=== PATIENT | female | born 1945 | race Caucasian/White ===

== ENCOUNTER 2023-07-30 22:30 | Inpatient (IN) | payer MEDICARE, SELFPAY ==
--- NOTE | 2023-07-30 22:30 | NURSING ---
Addendum entered by Cesar Uribe 07/31/23 02:34: patient declines flu and pneumonia vaccine, states I am up to date on all of my vaccines, I don't need any Original Note: patient arrived to unit via w/c via car with family transport from [place], patient states I took all of my night medications except the eliquis because I didn't have that one. Reviewed med list, patient confirms only need HS dose of eliquis. Patient A&Ox4, person/place/time/situation. Patient also states I took an oxy not long ago too before I got here. surgical dressings x3 in place to LLE, proximal dressing observed with moderate dark red drainage. No c/o pain at this time. Oriented to room and surroundings. Family at bedside. Call light in reach.
[2023-07-30 23:08] VITALS: BP 134/74; PULSE 86; RESP 16; TEMP 36.6; O2SAT 97
[2023-07-30 23:25] VITALS: BMI 31.4
--- NOTE | 2023-07-30 23:35 | NURSING ---
Code status discussed w/ pt. Pt voices her code status is DNR-CCA and that she would like that to remain. DNR-CCA paper signed.
--- NOTE | 2023-07-30 23:36 | NURSING ---
notified of patient admit by phone. Notified of estradiol and progesterone order not able to be ordered per admission nurse/unavailable in pharmacy, Per Dr. Carmen alternative may be able to be ordered. No new orders received at this time.
[2023-07-30] MEDS: APIXABAN 2.5 MG TABLET (WCH) PO (23:52)
[2023-07-31] MEDS: oxyCODONE 5 MG Tablet PO ×4 (02:44→22:46)
[2023-07-31] MEDS: metFORMIN (XR) 500 MG Tablet PO ×3 (06:35→21:25)
[2023-07-31 06:55] LABS: Bedside Glucose 134 mg/dL (74-106)
[2023-07-31 08:51] LABS: Anion Gap 4 (5-15); BUN 17 mg/dL (7-18); BUN/Creat Ratio 24.1 RATIO (10-20); Calcium,Total 8.6 mg/dL (8.5-10.1); Chloride 107 mmol/L (98-107); EST Glomerular Filtration Rate 86 mL/min (>60); Est Glom Filt Rate - Afr Amer 104 mL/min (>60); Glucose 149 mg/dL (74-106); Potassium 3.7 mmol/L (3.5-5.1); Sodium Level 138 mmol/L (136-145)
--- NOTE | 2023-07-31 09:03 | HP.PCM_ITS ---
HPI - General General Date of Admission: 07/30/23 Date of Service: 08/02/23 Chief Complaint: Here for rehabilitation. HPI Narrative ROXANA BREWER, is a 77 Female who presents with followin07/26/2023 Admit to [facility] ([place], [place]). Fall, landing on back, left leg, stepped backward, twisted at awkward angle. Morphine given per EMS. No head injury, no LOC. X-ray showed left hip fracture. Consult Orthopedics, prepare for surgery. 07/27/2023 Orthopedics performed trochanteric fixation nail of left hip. 07/27/2023 Severe pain overnight. PT/OT. [place] for urinary retention. Restart HTN medications. 07/28/2023 Eliquis for DVT prophylaxis thru 08/31/2023. 07/29/2023 Ready for discharge, but transportation complicated. 07/30/2023 Admit to TCU with debility, here for rehabilitation, strengthening, prior to discharge home with . [facility] Medical History (Updated 07/31/23 @ 09:[address] Delroy Carmen MD) Closed left hip fracture Debility Diabetes mellitus Diabetic polyneuropathy Fall Hyperlipidemia Hypertension Menopausal syndrome Urinary retention Home Medications amlodipine 5 mg tablet 5 mg PO DAILY blood pressure 07/31/14 [History Last Taken 07/30/23] losartan 50 mg tablet 50 mg PO DAILY blood pressure 07/31/14 [History Last Taken 07/30/23] metoprolol succinate 50 mg tablet,extended release 24 hr 50 mg PO DAILY blood pressure 07/31/14 [History Last Taken 07/30/23] atorvastatin 10 mg tablet mg cholesterol 07/30/23 [History Last Taken 07/30/23] estradiol 0.025 mg/24 hr weekly transdermal patch estrogen 07/30/23 [History Last Taken 07/28/23] gabapentin 100 mg capsule 200 mg nerve pain 07/30/23 [History Last Taken Unknown] metformin 500 mg tablet,extended release 24 hr mg PO diabetes 07/30/23 [History Last Taken 07/30/23] progesterone micronized 100 mg capsule mg progesterone 07/30/23 [History Last Taken 07/30/23] topiramate 100 mg tablet mg nerve pain 07/30/23 [History Last Taken 07/30/23] Allergy/AdvReac Type Severity Reaction Status Date / Time lisinopril AdvReac Upset Verified 07/31/14 11:48 Stomach Sulfa (Sulfonamide AdvReac Other Verified 07/31/14 11:48 Antibiotics) Family History (Updated 07/31/23 @ 09:[address] Delroy Carmen MD) Father Lung cancer Mother Hypertension Aortic aneurysm Sister Parkinson disease Surgical History (Updated 07/31/23 @ 09:[address] Delroy Carmen MD) History of nasal septoplasty History of tonsillectomy History of tubal ligation Social History (Updated 07/31/23 @ 09:[address] Delroy Carmen MD) household members: spouse Smoking Status: Never smoker alcohol intake: never substance use type: does not use ROS Constitutional Constitutional: Denies chills, fever(s) or weight gain ENT HEENT: Denies headache(s), nasal congestion or nasal discharge Cardiovascular Cardiovascular: Denies chest pain or palpitations Respiratory/Chest Respiratory/Chest: Denies cough, excessive phlegm production or shortness of breath with exertion Gastrointestinal Gastrointestinal: Denies abdominal pain, nausea or vomiting Genitourinary Genitourinary: Denies dysuria Musculoskeletal Musculoskeletal: Denies joint pain or joint swelling Integumentary Integumentary: Denies rash or wounds Neurologic Neurologic: Denies focal weakness, numbness or tingling Psychiatric Psychiatric: Denies anxiety, auditory hallucinations, depression, homicidal ideation or suicidal ideation Vital Signs Vital Signs Vital Signs: 07/30/23 23:08 07/30/23 23:08 07/30/23 23:08 Temperature 97.8 F 97.8 F Temperature Source Oral Oral Pulse Rate 86 86 86 Pulse Rhythm Regular Pulse Strength Normal (2+) Respiratory Rate 16 16 16 Respiratory Effort Normal Non-Labored Respiratory Depth Normal Respiratory Pattern Normal Blood Pressure 134/74 H 134/74 H Blood Pressure Mean 94 94 Blood Pressure Source Monitor Blood Pressure Position Semi-Fowlers Blood Pressure Location Left Arm Pulse Ox 97 97 97 Oxygen Delivery Method Room Air Room Air Room Air Physical Exam Const alert General Appearance: cooperative HEENT normocephalic Eyes PERRL and EOMs intact bilaterally Neck supple, no JVD and no carotid bruits Resp normal respiratory effort, normal air movement and clear to auscultation bilaterally Cardio regular rate and regular rhythm GI normal to inspection, nondistended, normoactive bowel sounds, non-tender and non-distended Extremity normal capillary refill General Extremity: Negative for edema Skin no rashes or lesions noted General Skin Exam: no breakdown Psych affect normal Appearance: appropriate Results Lab / Micro Data 07/31/23 08:13 Labs: Laboratory Results - last 24 hr 07/31/23 06:35: POC Glucose 134 H 07/31/23 08:13: Sodium 138, Potassium 3.7, Chloride 107, Carbon Dioxide 27.0, Anion Gap 4 L, BUN 17, Creatinine 0.70, Est GFR (MDRD) Af Amer 104, Est GFR (MDRD) Non-Af 86, BUN/Creatinine Ratio 24.1 H, Glucose 149 H, Calcium 8.6 Assessment & Plan Assessment/Plan (1) Debility: (2) Fall: (3) Closed left hip fracture: (4) Urinary retention: (5) Diabetes mellitus: (6) Hypertension: (7) Hyperlipidemia: (8) Diabetic polyneuropathy: (9) Menopausal syndrome: PLAN: Plan 77 year old female with below past medical history hospitalized for left hip fracture, underwent left hip trochanteric nail fixation 07/27/2023, postoperative course complicated by urinary retention, admitted to TCU with debility, here for rehabilitation, strengthening, prior to discharge home with . * Debility - PT/OT. * Pain - Tylenol 1000mg q6 prn pain (1-5), Oxycodone 5mg q4 prn pain (6-10). * Bowel - senna/colace 2 tablets bid, Magnesium citrate 300ml daily prn. * Adult immunization - Administer pneumonia vaccine, covid vaccine, flu vaccine as appropriate. * DVT prophylaxis - Eliquis 2.5mg bid thru 08/20/2023. * Hypertension - Metoprolol succinate 50mg daily, Losartan 50mg daily, Amlodi pine 5mg daily. * Hyperlipidemia - Atorvastatin 10mg qhs. * Menopausal syndrome - Prempro 0.625-2.5mg daily. * Diabetic polyneuropathy - Gabapentin 200mg qhs. * Diabetes Mellitus II - Metformin XR 500mg tid. * Essential tremor - Topiramate 100mg daily.
[2023-07-31 09:40] VITALS: BP 136/69; PULSE 89
[2023-07-31] MEDS: Topiramate 100 MG Tablet PO (09:40)
[2023-07-31] MEDS: amLODIPine 5 MG Tablet PO (09:40)
[2023-07-31] MEDS: Losartan Potassium 50 MG Tablet PO (09:40)
[2023-07-31] MEDS: Metoprolol(XL)Succ 50 MG Tablet PO (09:40)
[2023-07-31] MEDS: APIXABAN 2.5 MG TABLET (WCH) PO ×2 (09:40→21:25)
[2023-07-31] MEDS: Tuberculin,Purif.prot.deriv. 50 TU/ML Vial 0.1 ML ID (10:37)
[2023-07-31 10:52] VITALS: O2SAT 97
[2023-07-31 11:29] LABS: Bedside Glucose 126 mg/dL (74-106)
[2023-07-31] MEDS: Senna/Docusate Sodium 1 Tablet 2 TABLET PO ×2 (11:39→21:24)
[2023-07-31] MEDS: Estrogens,Conj. 0.625 MG Tablet PO (11:42)
[2023-07-31 15:42] VITALS: BP 118/56; PULSE 87; RESP 14; TEMP 36.5; O2SAT 99
[2023-07-31 16:34] LABS: Bedside Glucose 198 mg/dL (74-106)
[2023-07-31] MEDS: Gabapentin 100 MG Capsule 200 MG PO (21:23)
[2023-07-31] MEDS: Atorvastatin Calcium 10 MG Tablet PO (21:25)
[2023-07-31 22:10] LABS: Bedside Glucose 126 mg/dL (74-106)
[2023-07-31] MEDS: Acetaminophen 500 MG Tablet 1000 MG PO (22:46)
[2023-08-01] MEDS: oxyCODONE 5 MG Tablet PO ×4 (04:06→23:40)
--- NOTE | 2023-08-01 04:23 | NURSING ---
Metformin XR 500mg is scheduled 1 tablet TID- refer to JUL. Pt notes home regimen is 2 tablets (1000mg) w/ breakfast and 1 tablet at supper at home. Does not wish to take dose scheduled for 0600 this am. Checks blood sugar once per month and PRN sxs hypo/hyperglycemia. Will place a communication to pharmacy and report to oncoming nurse.
[2023-08-01 06:32] LABS: Bedside Glucose 142 mg/dL (74-106)
[2023-08-01] MEDS: Losartan Potassium 50 MG Tablet PO (09:06)
[2023-08-01 09:07] VITALS: BP 148/77; PULSE 91
[2023-08-01] MEDS: Estrogens,Conj. 0.625 MG Tablet PO (09:07)
[2023-08-01] MEDS: metFORMIN (XR) 500 MG Tablet 1000 MG PO (09:07)
[2023-08-01] MEDS: Metoprolol(XL)Succ 50 MG Tablet PO (09:07)
[2023-08-01] MEDS: amLODIPine 5 MG Tablet PO (09:07)
[2023-08-01] MEDS: Topiramate 100 MG Tablet PO (09:07)
[2023-08-01] MEDS: APIXABAN 2.5 MG TABLET (WCH) PO ×2 (09:08→21:59)
[2023-08-01] MEDS: Senna/Docusate Sodium 1 Tablet 2 TABLET PO ×2 (09:09→21:59)
[2023-08-01 15:34] VITALS: BP 105/57; PULSE 85; RESP 16; TEMP 36.4; O2SAT 98
[2023-08-01] MEDS: metFORMIN (XR) 500 MG Tablet PO (16:42)
[2023-08-01 21:25] LABS: Bedside Glucose 155 mg/dL (74-106)
[2023-08-01] MEDS: Gabapentin 100 MG Capsule 200 MG PO (21:58)
[2023-08-01] MEDS: Acetaminophen 500 MG Tablet 1000 MG PO (21:59)
[2023-08-01] MEDS: Atorvastatin Calcium 10 MG Tablet PO (22:00)
[2023-08-02] MEDS: oxyCODONE 5 MG Tablet PO ×4 (03:54→21:29)
[2023-08-02 06:11] LABS: Bedside Glucose 132 mg/dL (74-106)
[2023-08-02 09:29] VITALS: BP 137/71; PULSE 91; RESP 16; TEMP 36.4; O2SAT 96
[2023-08-02] MEDS: Losartan Potassium 50 MG Tablet PO (09:31)
[2023-08-02] MEDS: metFORMIN (XR) 500 MG Tablet 1000 MG PO (09:31)
[2023-08-02] MEDS: APIXABAN 2.5 MG TABLET (WCH) PO ×2 (09:31→21:22)
[2023-08-02 09:32] VITALS: PULSE 91
[2023-08-02] MEDS: Topiramate 100 MG Tablet PO (09:32)
[2023-08-02] MEDS: Senna/Docusate Sodium 1 Tablet 2 TABLET PO (09:32)
[2023-08-02] MEDS: Metoprolol(XL)Succ 50 MG Tablet PO (09:32)
[2023-08-02] MEDS: Estrogens,Conj. 0.625 MG Tablet PO (09:32)
[2023-08-02] MEDS: amLODIPine 5 MG Tablet PO (09:32)
[2023-08-02] MEDS: Hydrocortisone 2.5% Crm 1 APPLIC TOPICAL ×2 (09:41→19:54)
--- NOTE | 2023-08-02 09:50 | NURSING ---
hydrocortisone cream applied to rash on back, reddened and itchy. pt states she has a new nightgown on that was never washed. Ice pack refilled and placed to LT groin area per pt request. pt resting in recliner chair, legs elevated, at side
--- NOTE | 2023-08-02 10:17 | NURSING ---
[place] Hoist Operator Note; Activity Asset: Sarita Stern is independent in her choice of daily activities. She has her bible, books, magazines and word search puzzles with her. She will read and watch tv and her brick extruder operator will be visiting w/her along with her . Her stated he will bring items from home if she needs anything. Staff will remind her of weekly activities and respect her right to say no.
--- NOTE | 2023-08-02 10:59 | PCM.PN.DRR ---
Documented by User: Samuel Vazquez 08/02/23 11:18 TCU RX Drug Regimen Review Subjective/Objective Subjective/Objective: Subjective: TCU drug regimen review. 77 year old female with below past medical history hospitalized for left hip fracture, underwent left hip trochanteric nail fixation 07/27/2023, postoperative course complicated by urinary retention, admitted to TCU with debility, here for rehabilitation, strengthening, prior to discharge home with . Objective: Allergies lisinopril Adverse Reaction (Verified 07/31/14 11:48) Upset Stomach Sulfa (Sulfonamide Antibiotics) Adverse Reaction (Verified 07/31/14 11:48) Other Current Medications Generic Name Dose Route Start Last Admin Trade Name Freq PRN Reason Stop Dose Admin Acetaminophen 1,000 mg 07/31/23 09:22 08/01/23 21:59 Acetaminophen 500 Mg Tablet PO 1,000 mg Q6H PRN PRN Administration Pain Score 1-5 Amlodipine Besylate 5 mg 07/31/23 10:00 08/02/23 09:32 Amlodipine 5 Mg Tablet PO 5 mg DAILY RUBEN Administration Protocol Apixaban 2.5 mg 07/30/23 23:29 08/02/23 09:31 Apixaban 2.5 Mg Tablet ([facility]) PO 08/20/23 23:30 2.5 mg BID RUBEN Administration Atorvastatin Calcium 10 mg 07/31/23 22:00 08/01/23 22:00 Atorvastatin Calcium 10 Mg Tablet PO 10 mg HS RUBEN Administration Estrogens Conjugated 0.625 mg 07/31/23 10:00 08/02/23 09:32 Estrogens,Conj. 0.625 Mg Tablet PO 0.625 mg DAILY RUBEN Administration Gabapentin 200 mg 07/31/23 22:00 08/01/23 21:58 Gabapentin 100 Mg Capsule PO 200 mg HS RUBEN Administration Hydrocortisone 1 applic 08/02/23 07:23 08/02/23 09:41 Hydrocortisone 2.5% Crm TOPICAL 1 applic BID PRN PRN Administration RASH/TOPICAL IRRITATION Protocol Losartan Potassium 50 mg 07/31/23 10:00 08/02/23 09:31 Losartan Potassium 50 Mg Tablet PO 50 mg DAILY RUBEN Administration Protocol Magnesium Citrate 300 ml 07/31/23 09:23 Magnesium Citrate 300 Ml PO DAILY PRN CONSTIPATION Medroxyprogesterone Acetate 2.5 mg 07/31/23 10:00 08/02/23 09:31 Medroxyprogesterone 2.5 Mg Tablet PO 2.5 mg DAILY RUBEN Administration Metformin HCl 500 mg 08/01/23 17:00 08/01/23 16:42 Metformin (Xr) 500 Mg Tablet PO 500 mg SUPPER RUBEN Administration Metformin HCl 1,000 mg 08/01/23 08:00 08/02/23 09:31 Metformin (Xr) 500 Mg Tablet PO 1,000 mg BREAKFAST RUBEN Administration Metoprolol Succinate 50 mg 07/31/23 10:00 08/02/23 09:32 Metoprolol(Xl)Succ 50 Mg Tablet PO 50 mg DAILY RUBEN Administration Protocol Oxycodone HCl 5 mg 07/31/23 09:24 08/02/23 03:54 Oxycodone 5 Mg Tablet PO 08/03/23 09:24 5 mg Q4H PRN PRN Administration Pain Score 6-10 Senna/Docusate Sodium 2 tablet 07/31/23 10:00 08/02/23 09:32 Senna/Docusate Sodium 1 Tablet PO 2 tablet BID RUBEN Administration Topiramate 100 mg 07/31/23 10:00 08/02/23 09:32 Topiramate 100 Mg Tablet PO 100 mg DAILY RUBEN Administration Tuberculin PPD 0.1 ml 08/07/23 10:00 Tuberculin,Purif.Prot.Deriv. 50 Tu/Ml Vial ID 08/07/23 10:01 X1 ONE Problem List (Updated 07/31/23 @ 09:[address] Delroy Carmen MD) Menopausal syndrome (Acute) Diabetic polyneuropathy (Acute) Hyperlipidemia (Acute) Hypertension (Chronic) Diabetes mellitus (Acute) Urinary retention (Acute) Closed left hip fracture (Acute) Fall (Acute) Debility (Acute) Vital Signs Temp Pulse Resp BP Pulse Ox O2 Del Method 97.6 F L 91 16 137/71 H 96 Room Air 08/02/23 09:29 08/02/23 09:32 08/02/23 09:29 08/02/23 09:29 08/02/23 09:29 08/02/23 09:29 Oxygen Delivery Method Room Air Weight: 83.642 kg Body Mass Index (BMI) 31.4 Sodium 138 mmol/L (136-145) 07/31/23 08:13 Potassium 3.7 mmol/L (3.5-5.1) 07/31/23 08:13 Chloride 107 mmol/L (98-107) 07/31/23 08:13 Carbon Dioxide 27.0 mmol/L (21.0-32.0) 07/31/23 08:13 Anion Gap 4 (5-15) L 07/31/23 08:13 BUN 17 mg/dL (7-18) 07/31/23 08:13 Creatinine 0.70 mg/dL (0.55-1.02) 07/31/23 08:13 Est GFR (MDRD) Af Amer 104 mL/min (>60) 07/31/23 08:13 Est GFR (MDRD) Non-Af 86 mL/min (>60) 07/31/23 08:13 BUN/Creatinine Ratio 24.1 RATIO (10-20) H 07/31/23 08:13 Glucose 149 mg/dL (74-106) H 07/31/23 08:13 Assessment/Plan: 1. Pain: acetaminophen 1000 mg PO Q6H PRN pain (1-5), oxycodone 5 mg PO Q4H PRN pain (6-10). The patient has used 2 PRN doses of acetaminophen and 8 doses of PRN oxycodone so far this admission. Please continue to monitor pain scores, LFTs (no recent LFTs documented), for sedation, respiratory depression, drowsiness/dizziness, constipation and syncope/ataxia/falls. As the patient continues to require frequent doses of oxycodone please consider change acetaminophen to 1000 mg PO Q8H scheduled to try to stay ahead of pain levels. 2. Bowel: senna/docusate 2 tablets PO BID, magnesium citrate 300 mL PO daily PRN constipation. The patient has not required any PRN doses of magnesium citrate so far this admission. Please continue to monitor for PRN medication usage, bowel movements, diarrhea and constipation. 3. DVT prophylaxis: apixaban 2.5 mg PO BID through 08/20/23. Please continue to monitor for s/s of DVT such as pain/erythema/edema in the lower extremity, for s/s of bleeding/excessive bruising, hemoglobin levels (Hgb = 16.1 g/dL on 07/31/14), and platelet counts (Plt = 223 K/mm3 on 07/31/14). Please consider ordering updated hemoglobin and platelet counts to assess levels while on anticoagulation. 4. Hypertension: metoprolol succinate 50 mg PO daily, losartan 50 mg PO daily, amlodipine 5 mg PO daily. Please continue to monitor blood pressures (recent range = 105-148/56-74 mmHg), heart rates (recent range = 78-91 beats/min), renal function (serum creatinine = 0.70 mg/dL with creatinine clearance ~ 104 mL/min on 07/31/23), sodium levels (Na = 138 mmol/L on 07/31/23), potassium levels (K = 3.7 mmol/L on 07/31/23), and for lower extremity edema. 5. Hyperlipidemia: atorvastatin 10 mg PO QHS. Please continue to monitor lipid levels (no recent lipid levels documented), and for myalgias. Please consider ordering lipid levels to assess status if clinically indicated. 6. Diabetes Mellitus II: metformin 1000 mg PO daily with breakfast, 500 mg PO daily with supper. Please continue to monitor blood glucose levels (recent range = 126-198 mg/dL), hemoglobin A1C levels (no recent hemoglobin A1C level documented), for GI distress with metformin administration, and vitamin B12 levels (no recent vitamin B12 levels documented). Please consider ordering hemoglobin A1C and vitamin B12 levels if clinically indicated. 7. Diabetic polyneuropathy: gabapentin 200 mg PO QHS. Please continue to monitor for neuropathy symptoms, for drowsiness/dizziness, renal function (serum creatinine = 0.70 mg/dL with creatinine clearance ~ 104 mL/min on 07/31/23), and for lower extremity edema. 8. Menopausal syndrome: estrogen 0.625 mg PO daily, medroxyprogesterone 2.5 mg PO daily. Please continue to monitor for menopausal symptoms, for headaches, abdominal pain, dysmenorrhea, for hypertension, and migraines. 9. Essential Tremor: topiramate 100 mg PO daily. Please continue to monitor tremor symptoms, for kidney stones, for SI, for s/s of metabolic acidosis, and for dizziness. 10. Rash/topical irritation: hydrocortisone 2.5% 1 application topically BID PRN rash/topical irritation. The patient has used 1 application of PRN hydrocortisone so far this admission. Please continue to monitor for resolution of rash/topical irritation as well as for PRN medication usage. Assessment/Plan for indications treated with psychotropic medications: NA Medical chart and medication regimen reviewed. The following medication irregularities or issues were identified: 1. DVT prophylaxis: apixaban 2.5 mg PO BID through 08/20/23. Please consider ordering updated hemoglobin and platelet counts to assess levels while on anticoagulation. 2. Hyperlipidemia: atorvastatin 10 mg PO QHS. Please consider ordering lipid levels to assess status if clinically indicated. 3. Diabetes Mellitus II: metformin 1000 mg PO daily with breakfast, 500 mg PO daily with supper. Please consider ordering hemoglobin A1C and vitamin B12 levels if clinically indicated. Date Date of Note:: 08/02/23 Documented by User: Dr. Delroy Carmen MD 08/02/23 12:16 TCU RX Drug Regimen Review Provider Comments Provider responsibility Provider Comments to Recommendations by Pharmacy: Agree
[2023-08-02 13:55] VITALS: RESP 16; O2SAT 96
--- NOTE | 2023-08-02 15:43 | CASEMGMT ---
Transitional Care Unit Financial Services Manager Sw met with patient to complete initial assessment. Sw introduced self and explained role. Sw verified patient's contacts. Patient confirmed code status as DNRCC-A, no intubation. Amara reports that her documentation of advanced directives have been brought into hospital today to be scanned into her medical record. Patient identifies her HCPOA as friend, Nereida Nieto. Patient educated to Medicare benefits. Patient's goal is to be discharged to home with . Sw will remain involved throughout current hospitalization to assist with discharge planning. Bryan Chadwick, OPERATING ROOM TECHNICIAN, PROGRAM DIRECTOR/MORNING SHOW HOST
[2023-08-02] MEDS: metFORMIN (XR) 500 MG Tablet PO (17:42)
[2023-08-02] MEDS: Gabapentin 100 MG Capsule 200 MG PO (21:22)
[2023-08-02] MEDS: Atorvastatin Calcium 10 MG Tablet PO (21:22)
[2023-08-02 21:42] LABS: Bedside Glucose 122 mg/dL (74-106)
[2023-08-03] MEDS: oxyCODONE 5 MG Tablet PO ×2 (05:38→17:41)
--- NOTE | 2023-08-03 06:00 | NURSING ---
Patient told SERVICES ACCOUNT MANAGER during AM accucheck that this will be the last time I'm getting poked. SERVICES ACCOUNT MANAGER told this nurse patient is refusing to have any more blood sugar checks. This nurse spoke with patient regarding the importance of blood sugar checks due to her being on diabetic medications (metformin) twice a day. Patient educated on consequences of not checking blood sugars such as hypoglycemia or hyperglycemia. Patient understands and is still requesting to have accuchecks discontinued. This nurse left note for Dr. Carmen.
[2023-08-03 06:05] LABS: Bedside Glucose 127 mg/dL (74-106)
[2023-08-03 06:39] LABS: Cholesterol 106 mg/dL (200); High Density Lipoprotein 35 mg/dL; Triglycerides 105 mg/dL; Very Low Density Lipoprotein 21 mg/dL (5-40)
[2023-08-03 08:13] LABS: Hemoglobin A1c 6.1 % (3.8-5.6)
[2023-08-03 08:27] VITALS: PULSE 89
[2023-08-03] MEDS: Metoprolol(XL)Succ 50 MG Tablet PO (08:27)
[2023-08-03] MEDS: amLODIPine 5 MG Tablet PO (08:27)
[2023-08-03] MEDS: metFORMIN (XR) 500 MG Tablet 1000 MG PO (08:28)
[2023-08-03] MEDS: Topiramate 100 MG Tablet PO (08:28)
[2023-08-03] MEDS: APIXABAN 2.5 MG TABLET (WCH) PO ×2 (08:28→21:13)
[2023-08-03] MEDS: Losartan Potassium 50 MG Tablet PO (08:28)
[2023-08-03] MEDS: Estrogens,Conj. 0.625 MG Tablet PO (08:28)
[2023-08-03 09:51] LABS: Vitamin B12 350 pg/mL (211-911)
[2023-08-03 10:15] VITALS: BP 118/64; PULSE 87; RESP 18; TEMP 36.6; O2SAT 95
[2023-08-03 11:17] VITALS: BMI 30.8
[2023-08-03] MEDS: Acetaminophen 500 MG Tablet 1000 MG PO (12:58)
[2023-08-03] MEDS: metFORMIN (XR) 500 MG Tablet PO (17:26)
[2023-08-03] MEDS: Hydrocortisone 2.5% Crm 1 APPLIC TOPICAL (20:08)
[2023-08-03 20:09] VITALS: PULSE 82; RESP 16; O2SAT 98
[2023-08-03] MEDS: Gabapentin 100 MG Capsule 200 MG PO (21:12)
[2023-08-03] MEDS: Atorvastatin Calcium 10 MG Tablet PO (21:13)
[2023-08-04] MEDS: oxyCODONE 5 MG Tablet PO ×4 (00:18→21:22)
[2023-08-04] MEDS: Hydrocortisone 2.5% Crm 1 APPLIC TOPICAL ×2 (06:41→21:25)
[2023-08-04 08:36] VITALS: BP 116/59; PULSE 89
[2023-08-04] MEDS: Metoprolol(XL)Succ 50 MG Tablet PO (08:36)
[2023-08-04] MEDS: Estrogens,Conj. 0.625 MG Tablet PO (08:36)
[2023-08-04] MEDS: Topiramate 100 MG Tablet PO (08:38)
[2023-08-04] MEDS: APIXABAN 2.5 MG TABLET (WCH) PO ×2 (08:38→21:22)
[2023-08-04] MEDS: metFORMIN (XR) 500 MG Tablet 1000 MG PO (08:38)
[2023-08-04] MEDS: amLODIPine 5 MG Tablet PO (08:38)
[2023-08-04] MEDS: Losartan Potassium 50 MG Tablet PO (08:38)
[2023-08-04 09:19] VITALS: PULSE 72; RESP 16; TEMP 36.6; O2SAT 98
--- NOTE | 2023-08-04 11:49 | CASEMGMT ---
Social Work Collaboration with PRODUCE SERVICE TEAM MEMBER on presenting social work information for care plan meeting. Information included explanation of Medicare benefit and copay coverage. Inquired about concerns for DC, steps to navigate at home, if can provide assistance and if there are no DME or therapy needs at DC. Pt/ reported there are no concerns with DC; can assist; pt is gradually completing steps in therapy sessions; No DME needs; requesting [facility] at DC. This worker's business card was provided to pt/ if questions arise. SW will continue to follow for DC planning. JOSE LUIS QuinterosW
--- NOTE | 2023-08-04 15:59 | CHAPLAIN ---
Type of Pastoral Visit _x__ Initial Visit ___ Follow-up Visit ___ On-call Visit ___ General Patient Visit ___ Spiritual Assessment ___ Family Conference ___ Bereavement ___ Rapid Response ___ Code Blue ___ Other (describe below) Pastoral Care Referral From _x__ Patient ___ Family ___ Nurse ___ Physician ___ Account Receivable Associate ___ Leather Shaver ___ Other (describe below) Sacrament/Intervention _x__ Active listening ___ Anointing ___ Muslim ___ Bereavement ___ Communion _x__ Maya exploration ___ _x__ Life review _x__ Prayer ___ Reconciliation ___ Sacrament of Sick ___ Supportive presence ___ Wedding ___ Other (describe below) Pastoral Comments patient and spouse are in the room; pt reports on many good outcomes and circumstances with her recovery; pt speaks of her life and her service to the community; 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
[2023-08-04] MEDS: metFORMIN (XR) 500 MG Tablet PO (17:50)
[2023-08-04] MEDS: Atorvastatin Calcium 10 MG Tablet PO (21:22)
[2023-08-04] MEDS: Senna/Docusate Sodium 1 Tablet 2 TABLET PO (21:22)
[2023-08-04] MEDS: Gabapentin 100 MG Capsule 200 MG PO (21:23)
--- NOTE | 2023-08-04 22:29 | NURSING ---
Patient c/o that rash on back has changed from itching to painful. No significant change in look of rash from yesterday. Extra flat sheet placed on bed, hydrocortisone cream applied to back. Communication left for Dr. Carmen. Will continue to monitor.
[2023-08-05] MEDS: oxyCODONE 5 MG Tablet PO ×3 (03:41→21:54)
[2023-08-05 08:13] VITALS: BP 114/67; PULSE 90; RESP 16; TEMP 36.6; O2SAT 97
[2023-08-05 08:17] VITALS: PULSE 90
[2023-08-05] MEDS: metFORMIN (XR) 500 MG Tablet 1000 MG PO (08:17)
[2023-08-05] MEDS: Metoprolol(XL)Succ 50 MG Tablet PO (08:17)
[2023-08-05] MEDS: Estrogens,Conj. 0.625 MG Tablet PO (08:17)
[2023-08-05] MEDS: Losartan Potassium 50 MG Tablet PO (08:17)
[2023-08-05] MEDS: Topiramate 100 MG Tablet PO (08:17)
[2023-08-05] MEDS: Senna/Docusate Sodium 1 Tablet 2 TABLET PO (08:17)
[2023-08-05] MEDS: APIXABAN 2.5 MG TABLET (WCH) PO ×2 (08:17→21:57)
[2023-08-05] MEDS: amLODIPine 5 MG Tablet PO (08:18)
[2023-08-05] MEDS: Hydrocortisone 2.5% Crm 1 APPLIC TOPICAL (08:19)
--- NOTE | 2023-08-05 08:25 | NURSING ---
DR JACOBSEN ORDERED MEDROL DOSE LAMONT AND DOXYCYCLINE FOR BACK RASH.
[2023-08-05] MEDS: Doxycycline 100 MG CAPSULE PO ×2 (09:37→21:56)
[2023-08-05] MEDS: MethylPREDNISolone DosePak 4 MG BOX PO ×3 (12:08→21:57)
[2023-08-05] MEDS: metFORMIN (XR) 500 MG Tablet PO (18:22)
[2023-08-05 21:30] VITALS: RESP 16
[2023-08-05] MEDS: Gabapentin 100 MG Capsule 200 MG PO (21:55)
[2023-08-05] MEDS: Atorvastatin Calcium 10 MG Tablet PO (21:56)
[2023-08-06] MEDS: metFORMIN (XR) 500 MG Tablet 1000 MG PO (08:35)
[2023-08-06] MEDS: MethylPREDNISolone DosePak 4 MG BOX PO ×4 (08:38→21:14)
[2023-08-06] MEDS: Topiramate 100 MG Tablet PO (08:39)
[2023-08-06 08:40] VITALS: BP 129/68; PULSE 91
[2023-08-06] MEDS: Estrogens,Conj. 0.625 MG Tablet PO (08:40)
[2023-08-06] MEDS: Doxycycline 100 MG CAPSULE PO ×2 (08:40→21:06)
[2023-08-06] MEDS: Metoprolol(XL)Succ 50 MG Tablet PO (08:40)
[2023-08-06] MEDS: Losartan Potassium 50 MG Tablet PO (08:41)
[2023-08-06] MEDS: amLODIPine 5 MG Tablet PO (08:41)
[2023-08-06] MEDS: APIXABAN 2.5 MG TABLET (WCH) PO ×2 (08:41→21:06)
[2023-08-06] MEDS: oxyCODONE 5 MG Tablet PO ×3 (09:52→22:55)
--- NOTE | 2023-08-06 14:15 | MDS.RN ---
Pain interview for MDS completed.
[2023-08-06 15:37] VITALS: BP 117/55; PULSE 79; RESP 16; TEMP 37.1; O2SAT 95
[2023-08-06] MEDS: metFORMIN (XR) 500 MG Tablet PO (16:43)
--- NOTE | 2023-08-06 20:48 | CASEMGMT ---
Social Work BIMS () and PHQ-2 () completed for MDS assessment. Pt inquired about DC plans and requesting to set DC date. prefers 08/11. IDT agreeable to DC 08/11. Pt denied any DME needs and requesting OP therapy at [facility]. can transport. Plan: DC home with 08/11, [facility] PT Neha Garcia, JOSE LUIS NORTHW
[2023-08-06] MEDS: Senna/Docusate Sodium 1 Tablet 2 TABLET PO (21:06)
[2023-08-06] MEDS: Atorvastatin Calcium 10 MG Tablet PO (21:06)
[2023-08-06] MEDS: Gabapentin 100 MG Capsule 200 MG PO (21:06)
[2023-08-07] MEDS: oxyCODONE 5 MG Tablet PO ×3 (05:23→19:33)
[2023-08-07 06:45] LABS: Absolute Lymphocyte Count 3.44 X10^3/uL (0.83-4.51); Basophil# 0.03 X10^3/uL; Basophil% 0.2 % (0-1); Eosinophil# 0.01 X10^3/uL; Eosinophils% 0.1 % (0-5); Hematocrit 30.9 % (37-47); Hemoglobin 10.1 g/dL (12.0-15.0); Lymphocyte # 3.44 X10^3/ul (0.83-4.51); Lymphocyte % 28.4 % (19-41); Mean Corp Hgb Conc 32.7 g/dL (32-36); Mean Corpuscular Hgb 31.6 pg (27.0-32.0); Mean Corpuscular Volume 96.6 fL (81-99); Mean Platelet Vol. 8.4 fl (6.2-12.0); Monocyte# 0.59 X10^3/uL; Monocyte% 4.9 % (0-10); NRBC Flagged by Analyzer 0 % (0-5); Neutrophil # 7.98 X10^3/uL (2.7-7.7); Neutrophil % 65.7 % (47-70); Platelet Count 348 K/mm3 (150-450); RBC Distribution Width CV 14.3 % (11.6-14.6); RBC Distribution Width SD 47.9 fl (35.1-43.9); White Blood Count 12.1 K/mm3 (4.4-11.0)
[2023-08-07 07:29] LABS: Anion Gap 5 (5-15); BUN 21 mg/dL (7-18); BUN/Creat Ratio 26.5 RATIO (10-20); Chloride 105 mmol/L (98-107); Creatinine, Serum 0.79 mg/dL (0.55-1.02); EST Glomerular Filtration Rate 75 mL/min (>60); Est Glom Filt Rate - Afr Amer 90 mL/min (>60); Estimated Creatinine Clearance 61.93 ml/min; Glucose 151 mg/dL (74-106); Potassium 4.1 mmol/L (3.5-5.1); Sodium Level 135 mmol/L (136-145)
[2023-08-07 09:29] VITALS: PULSE 83
[2023-08-07] MEDS: Doxycycline 100 MG CAPSULE PO ×2 (09:29→22:17)
[2023-08-07] MEDS: Metoprolol(XL)Succ 50 MG Tablet PO (09:29)
[2023-08-07 09:30] VITALS: BP 122/64; PULSE 83; RESP 16; TEMP 36.6; O2SAT 95
[2023-08-07] MEDS: metFORMIN (XR) 500 MG Tablet 1000 MG PO (09:30)
[2023-08-07] MEDS: Estrogens,Conj. 0.625 MG Tablet PO (09:30)
[2023-08-07] MEDS: amLODIPine 5 MG Tablet PO (09:30)
[2023-08-07] MEDS: Losartan Potassium 50 MG Tablet PO (09:30)
[2023-08-07] MEDS: MethylPREDNISolone DosePak 4 MG BOX PO ×4 (09:31→22:15)
[2023-08-07] MEDS: APIXABAN 2.5 MG TABLET (WCH) PO ×2 (09:31→22:14)
[2023-08-07] MEDS: Topiramate 100 MG Tablet PO (09:33)
[2023-08-07] MEDS: Tuberculin,Purif.prot.deriv. 50 TU/ML Vial 0.1 ML ID (17:37)
[2023-08-07] MEDS: metFORMIN (XR) 500 MG Tablet PO (17:38)
[2023-08-07] MEDS: Atorvastatin Calcium 10 MG Tablet PO (22:14)
[2023-08-07] MEDS: Gabapentin 100 MG Capsule 200 MG PO (22:21)
[2023-08-08] MEDS: oxyCODONE 5 MG Tablet PO ×4 (01:43→22:34)
[2023-08-08 07:57] LABS: Hemoglobin 10.8 g/dL (12.0-15.0)
[2023-08-08 09:27] VITALS: PULSE 80
[2023-08-08] MEDS: Estrogens,Conj. 0.625 MG Tablet PO (09:27)
[2023-08-08] MEDS: amLODIPine 5 MG Tablet PO (09:27)
[2023-08-08] MEDS: Metoprolol(XL)Succ 50 MG Tablet PO (09:27)
[2023-08-08] MEDS: Topiramate 100 MG Tablet PO (09:27)
[2023-08-08] MEDS: APIXABAN 2.5 MG TABLET (WCH) PO ×2 (09:27→22:35)
[2023-08-08] MEDS: Senna/Docusate Sodium 1 Tablet 2 TABLET PO (09:27)
[2023-08-08] MEDS: Losartan Potassium 50 MG Tablet PO (09:28)
[2023-08-08] MEDS: Doxycycline 100 MG CAPSULE PO ×2 (09:28→22:35)
[2023-08-08] MEDS: metFORMIN (XR) 500 MG Tablet 1000 MG PO (09:28)
[2023-08-08] MEDS: MethylPREDNISolone DosePak 4 MG BOX PO ×3 (09:28→22:34)
[2023-08-08 11:00] VITALS: BP 130/61; PULSE 80; RESP 16; TEMP 36.6; O2SAT 95
[2023-08-08] MEDS: metFORMIN (XR) 500 MG Tablet PO (16:19)
[2023-08-08 22:30] VITALS: BP 142/68; PULSE 84; RESP 17; TEMP 36.3; O2SAT 94
[2023-08-08] MEDS: Gabapentin 100 MG Capsule 200 MG PO (22:34)
[2023-08-08] MEDS: Atorvastatin Calcium 10 MG Tablet PO (22:35)
[2023-08-09] MEDS: oxyCODONE 5 MG Tablet PO ×3 (05:12→19:41)
--- NOTE | 2023-08-09 08:01 | PCM.DC.SUM ---
Providers Date of Admission: 07/30/23 Primary Care Physician: Dr. Amanuel Pete MD Reason For Visit: LEFT HIP FRACTURE Diagnosis Discharge Diagnosis (1) Debility: Status: Acute Code(s): R53.81 - Other malaise (2) Fall: Status: Acute Code(s): W19.XXXA - Unspecified fall, initial encounter (3) Closed left hip fracture: Status: Acute Code(s): S72.002A - Fracture of unspecified part of neck of left femur, initial encounter for closed fracture (4) Urinary retention: Status: Acute Code(s): R33.9 - Retention of urine, unspecified (5) Diabetes mellitus: Status: Acute Code(s): E11.9 - Type 2 diabetes mellitus without complications (6) Hypertension: Status: Chronic Code(s): I10 - Essential (primary) hypertension (7) Hyperlipidemia: Status: Acute Code(s): E78.5 - Hyperlipidemia, unspecified (8) Diabetic polyneuropathy: Status: Acute Code(s): E11.42 - Type 2 diabetes mellitus with diabetic polyneuropathy (9) Menopausal syndrome: Status: Acute Code(s): N95.1 - Menopausal and female climacteric states Plan 77 year old female with below past medical history hospitalized for left hip fracture, underwent left hip trochanteric nail fixation 07/27/2023, postoperative course complicated by urinary retention, admitted to TCU with debility, here for rehabilitation, strengthening, prior to discharge home with . Debility - PT/OT. Pain - Tylenol 1000mg q6 prn pain (1-5), Oxycodone 5mg q4 prn pain (6-10). Bowel - senna/colace 2 tablets bid, Magnesium citrate 300ml daily prn. Adult immunization - Administer pneumonia vaccine, covid vaccine, flu vaccine as appropriate. DVT prophylaxis - Eliquis 2.5mg bid thru 08/20/2023. Hypertension - Metoprolol succinate 50mg daily, Losartan 50mg daily, Amlodipine 5mg daily. Hyperlipidemia - Atorvastatin 10mg qhs. Menopausal syndrome - Prempro 0.625-2.5mg daily. Diabetic polyneuropathy - Gabapentin 200mg qhs. Diabetes Mellitus II - Metformin XR 500mg tid. Essential tremor - Topiramate 100mg daily. Medications at Discharge Home Medications amlodipine 5 mg tablet 5 mg PO DAILY blood pressure 07/31/14 losartan 50 mg tablet 50 mg PO DAILY blood pressure 07/31/14 metoprolol succinate 50 mg tablet,extended release 24 hr 50 mg PO DAILY blood pressure 07/31/14 atorvastatin 10 mg tablet mg cholesterol 07/30/23 estradiol 0.025 mg/24 hr weekly transdermal patch estrogen 07/30/23 gabapentin 100 mg capsule 200 mg nerve pain 07/30/23 metformin 500 mg tablet,extended release 24 hr mg PO diabetes 07/30/23 progesterone micronized 100 mg capsule mg progesterone 07/30/23 topiramate 100 mg tablet mg nerve pain 07/30/23 acetaminophen 500 mg tablet 1,000 mg (2 x 500 mg) PO Q6H PRN PRN Pain Score 1-5 #0 tabs 08/09/23 apixaban 5 mg tablet (Eliquis) 2.5 mg (1/2 x 5 mg) PO BID 18 days #18 tabs 08/09/23 oxycodone 5 mg tablet 5 mg PO Q4H PRN PRN Pain Score 6-10 7 days #42 tabs 08/09/23 sennosides 8.6 mg-docusate sodium 50 mg tablet (Stool Softener-Stimulant Laxative) 2 tab PO BID 30 days #120 tabs 08/09/23 Hospital Course Operations - (See below.) Procedures None Summary of Care Provided Minutes Spent on Discharge: 35 Hospital Course: 77 year old female with below past medical history hospitalized for left hip fracture, underwent left hip trochanteric nail fixation 07/27/2023, postoperative course complicated by urinary retention, admitted to TCU with debility, here for rehabilitation, strengthening, prior to discharge home with . Discharge home with 08/12/2023, [facility]. Physical Exam Const alert General Appearance: cooperative HEENT normocephalic Eyes PERRL and EOMs intact bilaterally Neck supple, no JVD and no carotid bruits Resp normal respiratory effort, normal air movement and clear to auscultation bilaterally Cardio regular rate and regular rhythm GI normal to inspection, nondistended, normoactive bowel sounds, non-tender and non-distended Extremity normal capillary refill Extremity Narrative: Left buttock, left posterior thigh bruising. Left hip incision hung intact, underlying hematoma improving, no sign of infection. General Extremity: Negative for edema Skin no rashes or lesions noted General Skin Exam: no breakdown Psych affect normal Appearance: appropriate Weight / BMI Weight Weight: 81.873 kg Body Mass Index (BMI) 30.8 ABG / Lab / Microbiology Data 08/08/23 07:34 08/07/23 06:25 D/C Instructions Discharge Diet: No restrictions Discharge Activity: Return to Normal Activity, May Shower and Use Walker Weight Bearing Status: Weight bearing as tolerated Call your doctor if you observe: Fever of 101 or Higher, Inability to urinate, Inability to have a bowel movement, Shortness of breath, Dizziness, Fainting spells, Swelling in the ankles, Chest pain and Uncontrolled pain Additional Dressing/Incision Instructions: Discharge home with 08/12/2023, [facility]. Please Follow Up With: Arthur Calixto DO When: 08/13/2023. Meaningful Use Info Meaningful Use Diagnoses (Choose all that apply): None applicable Discharge Plan Admission Admit Date/Time: 07/30/23 22:30 Primary Reason for Your Visit: Debility. Attending Provider: Delroy Carmen Chi Primary Care Provider: Amanuel Pete Instructions Additional Instructions / Restrictions: Discharge home with 08/12/2023, [facility]. Discharge Orders/Prescriptions Prescriptions: New acetaminophen 500 mg Tablet 1,000 mg PO Q6H PRN PRN (Reason: Pain Score 1-5) Qty: 0 0RF sennosides-docusate sodium [Stool Softener-Stimulant Laxat] 8.6-50 mg Tablet 2 tab PO BID 30 Days Qty: 120 0RF oxycodone 5 mg Tablet 5 mg PO Q4H PRN PRN (Reason: Pain Score 6-10) 7 Days Qty: 42 0RF Eliquis 5 mg Tablet 2.5 mg PO BID 18 Days Qty: 18 0RF Continued losartan 50 MG tablet 50 mg PO DAILY metoprolol succinate 50 MG tablet 50 mg PO DAILY amlodipine 5 MG tablet 5 mg PO DAILY atorvastatin 10 mg tablet estradiol 0.025 mg/24 hr patch weekly Patient Comments: changes every Wednesday per patient gabapentin 100 mg capsule 200 mg Rx Instructions: gabapentin 100mg oral capsule take 2 (two) capsules by mouth every day at bedtime metformin 500 mg tablet extended release 24 hr PO Rx Instructions: metformin ER 500mg tablet take 1 tab by mouth three times daily progesterone micronized 100 mg capsule Rx Instructions: progesterone 100mg oral capsule take one capsule by mouth every day topiramate 100 mg tablet Referrals / Follow Up: Arthur Calixto DO [Med Staff - Active Staff] - 08/13/23 2:15 pm Amanuel Pete MD [Primary Care Provider] - (Leena will set this appointment up) Disposition Disposition (needs filled in before D/C Order can be placed): Home, Self Care
--- NOTE | 2023-08-09 09:00 | NURSING ---
Community Specialist Note; MDS for 08/06/2023 Complete
[2023-08-09 09:08] VITALS: BP 138/66; PULSE 76
[2023-08-09] MEDS: amLODIPine 5 MG Tablet PO (09:08)
[2023-08-09] MEDS: metFORMIN (XR) 500 MG Tablet 1000 MG PO (09:08)
[2023-08-09] MEDS: Estrogens,Conj. 0.625 MG Tablet PO (09:08)
[2023-08-09] MEDS: MethylPREDNISolone DosePak 4 MG BOX PO ×2 (09:08→21:24)
[2023-08-09] MEDS: Doxycycline 100 MG CAPSULE PO ×2 (09:08→21:22)
[2023-08-09] MEDS: APIXABAN 2.5 MG TABLET (WCH) PO ×2 (09:08→21:22)
[2023-08-09] MEDS: Metoprolol(XL)Succ 50 MG Tablet PO (09:08)
[2023-08-09] MEDS: Topiramate 100 MG Tablet PO (09:09)
[2023-08-09] MEDS: Losartan Potassium 50 MG Tablet PO (09:09)
[2023-08-09 13:49] VITALS: BP 128/62; PULSE 72; RESP 17; TEMP 36.2; O2SAT 93
[2023-08-09] MEDS: metFORMIN (XR) 500 MG Tablet PO (17:31)
[2023-08-09] MEDS: Gabapentin 100 MG Capsule 200 MG PO (21:21)
[2023-08-09] MEDS: Senna/Docusate Sodium 1 Tablet 2 TABLET PO (21:23)
[2023-08-09] MEDS: Atorvastatin Calcium 10 MG Tablet PO (21:23)
[2023-08-10] MEDS: oxyCODONE 5 MG Tablet PO ×4 (01:23→22:34)
[2023-08-10 07:58] VITALS: BP 139/67; PULSE 75
[2023-08-10] MEDS: Doxycycline 100 MG CAPSULE PO ×2 (07:58→22:34)
[2023-08-10] MEDS: metFORMIN (XR) 500 MG Tablet 1000 MG PO (07:58)
[2023-08-10] MEDS: Metoprolol(XL)Succ 50 MG Tablet PO (07:58)
[2023-08-10] MEDS: Losartan Potassium 50 MG Tablet PO (07:59)
[2023-08-10] MEDS: amLODIPine 5 MG Tablet PO (08:00)
[2023-08-10] MEDS: APIXABAN 2.5 MG TABLET (WCH) PO ×2 (08:00→22:35)
[2023-08-10] MEDS: Estrogens,Conj. 0.625 MG Tablet PO (08:01)
[2023-08-10] MEDS: Topiramate 100 MG Tablet PO (08:01)
--- NOTE | 2023-08-10 08:15 | RAD_ITS ---
STUDY: X-RAY - PELVIS AND LEFT HIP REASON FOR EXAM: Female, 77 years old. Surgical follow-up TECHNIQUE: 3 views of the pelvis and hip. COMPARISON: None. FINDINGS: Moderate amount of fecal material is seen throughout the colon. Is evidence of bilateral tubal ligation clips. There is narrowing with cortical sclerosis and osteophyte formation of the sacroiliac joint consistent with degenerative osteoarthritic changes. Normal bilateral superior and inferior pubic rami. Normal pubic symphysis. Normal bilateral ischial tuberosities. The patient is status post open reduction and internal fixation of the left intertrochanteric fracture utilizing an intramedullary elizabeth fixation device and compression screw. There is good alignment. RAD/HIP, UNI W/ Pelvis 2-3 Views IMPRESSION: Status post ORIF of the left intertrochanteric fracture. There is good alignment. Electronically Signed: Jorge Lorenz MD at 8:54 EDT ,
[2023-08-10 08:46] VITALS: BMI 29.8
[2023-08-10] MEDS: COVID VAC 23-24(12UP)(ANDU)/PF 50 MCG/0.5 ML SYRINGE IM (11:22)
--- NOTE | 2023-08-10 11:47 | MDS.RN ---
Information for the mds was obtained from review of the clinical record, interview of resident, staff, and direct observation of resident's care.
[2023-08-10 13:36] VITALS: BP 107/51; PULSE 82; RESP 16; TEMP 36.3; O2SAT 95
[2023-08-10] MEDS: metFORMIN (XR) 500 MG Tablet PO (17:39)
--- NOTE | 2023-08-10 18:26 | NURSING ---
[place] Removed PER order from Medial and Distal surgical incisions hung intact to proximal incision. Pt tolerated well and incisions well approximated no drainage noted to Distal and medial incision.
[2023-08-10 22:30] VITALS: PULSE 83; RESP 16; O2SAT 97
[2023-08-10] MEDS: Gabapentin 100 MG Capsule 200 MG PO (22:34)
[2023-08-10] MEDS: Atorvastatin Calcium 10 MG Tablet PO (22:34)
[2023-08-10] MEDS: Senna/Docusate Sodium 1 Tablet 2 TABLET PO (22:35)
[2023-08-11 07:45] VITALS: RESP 16
--- NOTE | 2023-08-11 07:51 | NURSING ---
Patient assisted with dressing change this morning after her shower, as she will be discharging 08/12/23 and states her will not be able to assist and she will need to be able to do it herself.
[2023-08-11] MEDS: metFORMIN (XR) 500 MG Tablet 1000 MG PO (08:25)
[2023-08-11] MEDS: Doxycycline 100 MG CAPSULE PO ×2 (08:27→21:06)
[2023-08-11] MEDS: Losartan Potassium 50 MG Tablet PO (08:27)
[2023-08-11] MEDS: amLODIPine 5 MG Tablet PO (08:28)
[2023-08-11] MEDS: Estrogens,Conj. 0.625 MG Tablet PO (08:28)
[2023-08-11] MEDS: APIXABAN 2.5 MG TABLET (WCH) PO ×2 (08:28→21:05)
[2023-08-11] MEDS: Topiramate 100 MG Tablet PO (08:28)
[2023-08-11] MEDS: oxyCODONE 5 MG Tablet PO ×3 (08:30→21:04)
[2023-08-11 08:35] VITALS: BP 144/68; PULSE 84
[2023-08-11] MEDS: Metoprolol(XL)Succ 50 MG Tablet PO (08:35)
[2023-08-11 16:00] VITALS: BP 123/61; PULSE 72; RESP 16; TEMP 36.2; O2SAT 98
[2023-08-11] MEDS: metFORMIN (XR) 500 MG Tablet PO (16:50)
[2023-08-11] MEDS: Gabapentin 100 MG Capsule 200 MG PO (21:04)
[2023-08-11] MEDS: Atorvastatin Calcium 10 MG Tablet PO (21:06)
[2023-08-12] MEDS: oxyCODONE 5 MG Tablet PO (05:14)
[2023-08-12 05:21] VITALS: PULSE 82; RESP 16; O2SAT 96
[2023-08-12 08:00] VITALS: BP 123/64; PULSE 82; RESP 16; TEMP 36.6; O2SAT 95
[2023-08-12 08:26] VITALS: BP 123/64; PULSE 82
[2023-08-12] MEDS: amLODIPine 5 MG Tablet PO (08:26)
[2023-08-12] MEDS: Metoprolol(XL)Succ 50 MG Tablet PO (08:26)
[2023-08-12] MEDS: Doxycycline 100 MG CAPSULE PO (08:26)
[2023-08-12] MEDS: metFORMIN (XR) 500 MG Tablet 1000 MG PO (08:27)
[2023-08-12] MEDS: Topiramate 100 MG Tablet PO (08:27)
[2023-08-12] MEDS: Estrogens,Conj. 0.625 MG Tablet PO (08:27)
[2023-08-12] MEDS: Losartan Potassium 50 MG Tablet PO (08:27)
[2023-08-12] MEDS: APIXABAN 2.5 MG TABLET (WCH) PO (08:27)
== END 2023-08-12 10:10 | disposition home or self-care (01) | DRG 561 ==
PROVIDERS: Admitting Provider Family Medicine Geriatric Medicine; PCP Family Medicine; Visit Provider Family Medicine Geriatric Medicine
DX: S72.002D Fracture of unspecified part of neck of left femur, subsequent encounter for closed fracture with routine healing (principal); E11.42 Type 2 diabetes mellitus with diabetic polyneuropathy; E78.5 Hyperlipidemia, unspecified; G25.0 Essential tremor; L02.222 Furuncle of back [any part, except buttock and flank]; I10 Essential (primary) hypertension; W19.XXXD Unspecified fall, subsequent encounter; R33.9 Retention of urine, unspecified; N95.1 Menopausal and female climacteric states; Z79.899 Other long term (current) drug therapy; Z79.84 Long term (current) use of oral hypoglycemic drugs; Z23 Encounter for immunization
CPT/HCPCS: 36415; 73502; 80048; 80061; 82607; 82962; 83036; 85014; 85018; 85025; 90480; 97110; 97116; 97129; 97162; 97166; 97530; 97535; 97802; 91322

== ENCOUNTER 2023-08-19 21:46 | Emergency (ER) | payer MEDICARE, OTHER, SELFPAY ==
[2023-08-19 21:46] VITALS: BP 176/77; PULSE 87; RESP 17; TEMP 37.1; O2SAT 97; BMI 31.1
--- NOTE | 2023-08-19 21:59 | EKG12_ITS ---
Test Reason : CP Blood Pressure : / mmHG Vent. Rate : 087 BPM Atrial Rate : 087 BPM P-R Int : 182 ms QRS Dur : 092 ms QT Int : 350 ms P-R-T Axes : 064 011 053 degrees QTc Int : 421 ms Normal sinus rhythm Normal ECG Confirmed by LATA KILGORE, KILLIAN ([id number]), news copy editor PAULETTE MITCHELL ([id number]) on 08/23/2023 11:03:15 AM Referred By: SHANTE Confirmed By:KILLIAN GUIDO MD
--- NOTE | 2023-08-19 22:08 | EX.ED.DYSGE1 ---
HPI History of Present Illness Chief Complaint: Chest Pain Detail of Chief Complaint: Patient denies chest pain. She complained of shortness of breath Informant: patient and EMS (EMS was concerned because of elevated blood pressure.) Onset/Context/Timing Onset: Hours Context: Sudden Onset Timing: Intermittent and Lasts (15 to 20 seconds) Quality: Shortness of breath and felt flushed. Location: Respiratory and generalized Current Severity: Gone Maximum Severity: Moderate Worsened by: Nothing Relieved by: Not applicable Associated Symptoms Associated Symptoms: Lateral left calf pain Narrative Narrative: Patient is a 77-year-old woman. She is on Eliquis to prevent DVT. She was visiting in [place] when she fell. She had a femur fracture. This was recently repaired. She does have history of hypertension. She states her blood pressure normally is 1 20-1 30. She presently has no symptoms other than the calf discomfort. She denies headache, visual, ocular auditory symptoms. She denies rhinorrhea, congestion or postnasal drainage. Denies sore throat. She presently denies shortness of breath. She denies cough. She denies chest discomfort. She was asked if she had chest discomfort or any pain with breathing and she denies. She denies abdominal pain, vomiting or diarrhea. She states when she felt flushed she did feel nauseous. She denies urologic symptoms. Prior similar symptoms: No Recent Illness/Hospitalization: Yes [facility] Medical History Closed left hip fracture Debility Diabetes mellitus Diabetic polyneuropathy Fall Hyperlipidemia Hypertension Menopausal syndrome Urinary retention Home Medications amlodipine 5 mg tablet 5 mg PO DAILY blood pressure 07/31/14 [History Last Taken 07/30/23] losartan 50 mg tablet 50 mg PO DAILY blood pressure 07/31/14 [History Last Taken 07/30/23] metoprolol succinate 50 mg tablet,extended release 24 hr 50 mg PO DAILY blood pressure 07/31/14 [History Last Taken 07/30/23] atorvastatin 10 mg tablet 10 mg PO DAILY cholesterol 07/30/23 [History Last Taken 07/30/23] estradiol 0.025 mg/24 hr weekly transdermal patch 1 patch transdermal QWEEK estrogen 07/30/23 [History Last Taken 07/28/23] gabapentin 100 mg capsule 200 mg PO QHS nerve pain 07/30/23 [History Last Taken Unknown] metformin 500 mg tablet,extended release 24 hr 500 mg PO BID diabetes 07/30/23 [History Last Taken 07/30/23] progesterone micronized 100 mg capsule mg progesterone 07/30/23 [History Last Taken 07/30/23] topiramate 100 mg tablet 100 mg PO DAILY nerve pain 07/30/23 [History Last Taken 07/30/23] acetaminophen 500 mg tablet 1,000 mg (2 x 500 mg) PO Q6H PRN PRN Pain Score 1-5 #0 tabs 08/09/23 [Rx Last Taken Unknown] apixaban 5 mg tablet (Eliquis) 2.5 mg (1/2 x 5 mg) PO BID 18 days #18 tabs 08/09/23 [Rx Last Taken Unknown] oxycodone 5 mg tablet 5 mg PO Q4H PRN PRN Pain Score 6-10 7 days #42 tabs 08/09/23 [Rx Last Taken Unknown] sennosides 8.6 mg-docusate sodium 50 mg tablet (Stool Softener-Stimulant Laxative) 2 tab PO BID 30 days #120 tabs 08/09/23 [Rx Last Taken Unknown] Allergy/AdvReac Type Severity Reaction Status Date / Time lisinopril AdvReac Upset Verified 08/19/23 21:52 Stomach Sulfa (Sulfonamide AdvReac Other Verified 08/19/23 21:52 Antibiotics) Family History Father Lung cancer Mother Hypertension Aortic aneurysm Sister Parkinson disease Surgical History History of nasal septoplasty History of tonsillectomy History of tubal ligation Social History household members: spouse Smoking Status: Never smoker alcohol intake: never substance use type: does not use ROS ROS ED Constitutional Constitutional ED: Reports other Details: Warm sensation and felt flushed ; Denies chills, fever(s), subjective, sweats or weight loss Eyes Eyes: Denies blurry vision, change in vision or diplopia ENT ENT ED: Denies ear pain, rhinorrhea or sore throat Cardiovascular Cardiovascular: Denies chest pain, orthopnea, palpitations, paroxysmal nocturnal dyspnea or racing heartbeat Respiratory/Chest Respiratory/Chest: Reports dyspnea; Denies cough, dyspnea on exertion, orthopnea or paroxysmal nocturnal dyspnea Gastrointestinal Gastrointestinal: Reports nausea; Denies abdominal pain, diarrhea, melena or vomiting Genitourinary Genitourinary ED: Denies dysuria, hematuria or urinary frequency Musculoskeletal Musculoskeletal: Reports other Details: Lateral left calf pain Integumentary Denies abscess or rash Neurologic Neurologic: Denies headache(s) or paresthesias Psychiatric Psychiatric: Reports anxiety Endocrine Endocrinology: Denies cold intolerance or heat intolerance Hematologic/Lymphatic Hematologic/Lymphatic: Reports easy bruising EXAM Physical Exam Const Vital Signs: 08/19/23 21:46 08/19/23 21:53 Temperature 98.8 F Temperature Source Oral Pulse Rate 87 Respiratory Rate 17 Respiratory Effort Normal Non-Labored Respiratory Pattern Normal Blood Pressure 176/77 H Blood Pressure Mean 110 Pulse Ox 97 Oxygen Delivery Method Room Air Positive well nourished, well developed and obese Constitutional Narrative: Blood pressure is elevated. Will monitor. General Appearance ED: well developed and NAD; Negative for pallor Nutritional Appearance: obese HEENT Reports moist mucous membranes HEENT Narrative: Head is atraumatic and normocephalic. Ears normal. Nares patent. Posterior pharynx is normal. Eyes PERRL and EOMs intact bilaterally General Eye ED: Negative for pale conjunctiva or scleral icterus Neck no lymphadenopathy, supple and no JVD Chest Wall inspection of chest normal and palpation of chest normal Resp normal respiratory effort and clear to auscultation bilaterally Cardio regular rate, regular rhythm, S1 normal heart sound and no murmurs GI normal to inspection, nondistended, normoactive bowel sounds, non-tender, non-distended and no masses; Negative for hepatosplenomegaly Back/Spine no CVA tenderness Extremity Extremity Narrative: There is bruising noted to the left lower extremity consistent with recent surgery. There is no swelling of the thigh or calf and there is no difference in measurement. There is mild tenderness lateral left calf. There is no tenderness on the distribution deep venous system. There is no asymmetry or discoloration other than the bruising from recent surgery. There is no leg vein distention. There is no palpable cords. General Extremety ED: Yes tenderness; Negative for edema General Extremity: Negative for edema Neuro oriented x3, CN's II-XII intact bilaterally and no sensory deficits noted Sensorium / Orientation: alert Motor Exam: strength 5/5 throughout Psych mental status grossly normal Skin no rashes or lesions noted, no wounds and skin turgor normal Skin Narrative: Well-healing incision site. General Skin Exam: elasticity normal; Negative for jaundice or pallor MDM MDM MDM Narrative Medical decision making narrative: With 15 to 20 seconds of feeling flushed and shortness of breath there is no concern for cardiac etiology. As previously mentioned even though triage documents chest pain patient denies. With 15 seconds of symptoms this is not consistent with PE furthermore patient is on anticoagulant has not missed any of her doses. She does have risk for PE since she had recent surgery. Since there is no leg vein swelling or tenderness on the distribution deep venous system or asymmetry in the pancreas anticoagulant doubt DVT. Will obtain baseline blood work to assess for anemia, EKG to rule out any acute ischemia and atypical presentation. Chest x-ray because she complained of dyspnea. History & Record Review Additional record(s) reviewed:: Prior outpatient record (2014 seen for diabetes. The H&P and discharge note by Dr. Carmen for TCU stay was read.) and Prior labs Lab Data Labs: Laboratory Results - last 24 hr 08/19/23 21:59 WBC 9.4 RBC 4.34 Hgb 13.4 Hct 42.4 MCV 97.7 MCH 30.9 MCHC 31.6 L RDW Std Deviation 50.0 H RDW Coeff of [place] 13.8 Plt Count 256 MPV 8.9 Immature Gran % (Auto) 0.200 Neut % (Auto) 47.9 Lymph % (Auto) 42.4 H Spencer % (Auto) 6.6 Eos % (Auto) 2.5 Baso % (Auto) 0.4 Absolute Neuts (auto) 4.5 Absolute Lymphs (auto) 3.96 Nucleated RBC % 0 Sodium 137 Potassium 4.3 Chloride 107 Carbon Dioxide 24.0 Anion Gap 6 BUN 16 Creatinine 0.87 Estim Creat Clear Calc 57.06 Est GFR (MDRD) Af Amer 81 Est GFR (MDRD) Non-Af 67 BUN/Creatinine Ratio 18.4 Glucose 129 H Calcium 9.2 Radiography Chest X-Ray - ED: 2 View, Read by ED Physician (Independent reviewed interpreted by me at 2242 as negative. Cardiac silhouette size normal. Lung parenchyma is normal. [place] is unremarkable. There is degenerative changes noted of the dorsal spine on the lateral view. There is no acute process noted.), Unchanged and No Acute Disease Rhythm Strip Rhythm Strip: Sinus Rhythm Rate: 84 Ectopy: None EKG Initial EKG: Attestation: I personally reviewed and interpreted this EKG as follows: Interpretation: Sinus Rhythm (Rate is 87 the EKG is normal. AL interval is 182 ms. QRS duration 92 ms. QT duration 350 ms. [place] is normal.) Discharge Plan Triage Chief Complaint: Chest Pain ED Provider: Alex Martino Dx/Rx/DC Orders Clinical Impression: Dyspnea, Debility, Diabetes mellitus, Hypertension, Hyperlipidemia, Anticoagulant long-term use, Closed left hip fracture Instructions: ED Dyspnea Prescriptions: No Action losartan 50 MG tablet 50 mg PO DAILY metoprolol succinate 50 MG tablet 50 mg PO DAILY amlodipine 5 MG tablet 5 mg PO DAILY atorvastatin 10 mg tablet 10 mg PO DAILY estradiol 0.025 mg/24 hr patch weekly 1 patch transdermal QWEEK Patient Comments: changes every Wednesday per patient gabapentin 100 mg capsule 200 mg PO QHS Rx Instructions: gabapentin 100mg oral capsule take 2 (two) capsules by mouth every day at bedtime metformin 500 mg tablet extended release 24 hr 500 mg PO BID Rx Instructions: metformin ER 500mg tablet take 1 tab by mouth three times daily progesterone micronized 100 mg capsule Rx Instructions: progesterone 100mg oral capsule take one capsule by mouth every day topiramate 100 mg tablet 100 mg PO DAILY acetaminophen 500 mg Tablet 1,000 mg PO Q6H PRN PRN (Reason: Pain Score 1-5) Qty: 0 0RF sennosides-docusate sodium [Stool Softener-Stimulant Laxat] 8.6-50 mg Tablet 2 tab PO BID 30 Days Qty: 120 0RF oxycodone 5 mg Tablet 5 mg PO Q4H PRN PRN (Reason: Pain Score 6-10) 7 Days Qty: 42 0RF Eliquis 5 mg Tablet 2.5 mg PO BID 18 Days Qty: 18 0RF Primary Care Provider: Amanuel Pete Referrals: Amanuel Pete MD [Primary Care Provider] - 3-5 Days Disposition Disposition: Home, Self Care
[2023-08-19 22:16] LABS: Absolute Lymphocyte Count 3.96 X10^3/uL (0.83-4.51); Absolute Neutrophil Count 4.5 X10^3/uL (2.0-7.7); Basophil# 0.04 X10^3/uL; Basophil% 0.4 % (0-1); Eosinophil# 0.23 X10^3/uL; Eosinophils% 2.5 % (0-5); Hematocrit 42.4 % (37-47); Hemoglobin 13.4 g/dL (12.0-15.0); Lymphocyte # 3.96 X10^3/ul (0.83-4.51); Lymphocyte % 42.4 % (19-41); Mean Corp Hgb Conc 31.6 g/dL (32-36); Mean Corpuscular Hgb 30.9 pg (27.0-32.0); Mean Corpuscular Volume 97.7 fL (81-99); Mean Platelet Vol. 8.9 fl (6.2-12.0); Monocyte# 0.62 X10^3/uL; Monocyte% 6.6 % (0-10); NRBC Flagged by Analyzer 0 % (0-5); Neutrophil # 4.48 X10^3/uL (2.7-7.7); Neutrophil % 47.9 % (47-70); Platelet Count 256 K/mm3 (150-450); RBC Distribution Width CV 13.8 % (11.6-14.6); Red Blood Count 4.34 M/mm3 (4.2-5.4); White Blood Count 9.4 K/mm3 (4.4-11.0)
--- NOTE | 2023-08-19 22:18 | RAD_ITS ---
EXAM: XR CHEST, 2 VIEWS CLINICAL INDICATION: Dyspnea TECHNIQUE: Frontal and lateral views of the chest. COMPARISON: July 31, 2014. FINDINGS: LUNGS AND PLEURAL SPACES: Unremarkable. No consolidation or edema. No pneumothorax. No effusion. HEART: Unremarkable. Cardiac silhouette not enlarged. MEDIASTINUM: Central airways and mediastinal contour are unremarkable. BONES/JOINTS: Degenerative changes of the acromioclavicular joints and spine. No acute fracture. SOFT TISSUES: Unremarkable. RAD/Chest PA and Lateral IMPRESSION: No acute disease. Electronically Signed: Wilfred Feliciano MD at 23:15 EDT ,
[2023-08-19 22:21] LABS: Anion Gap 6 (5-15); BUN 16 mg/dL (7-18); BUN/Creat Ratio 18.4 RATIO (10-20); Calcium,Total 9.2 mg/dL (8.5-10.1); Chloride 107 mmol/L (98-107); Creatinine, Serum 0.87 mg/dL (0.55-1.02); EST Glomerular Filtration Rate 67 mL/min (>60); Est Glom Filt Rate - Afr Amer 81 mL/min (>60); Estimated Creatinine Clearance 57.06 ml/min; Glucose 129 mg/dL (74-106); Potassium 4.3 mmol/L (3.5-5.1); Sodium Level 137 mmol/L (136-145)
[2023-08-19 22:46] VITALS: BP 166/74; PULSE 88; RESP 16; O2SAT 100
[2023-08-19 23:00] VITALS: BP 159/81; PULSE 97; RESP 16; TEMP 37; O2SAT 97
== END 2023-08-19 23:11 | disposition home or self-care (01) ==
PROVIDERS: Emergency Provider Emergency Medicine; PCP Family Medicine; Visit Provider Emergency Medicine
DX: R06.00 Dyspnea, unspecified (principal); E11.42 Type 2 diabetes mellitus with diabetic polyneuropathy; S72.90 Unspecified fracture of unspecified femur; E78.5 Hyperlipidemia, unspecified; I10 Essential (primary) hypertension; W19.XXXS Unspecified fall, sequela; R53.81 Other malaise; Z79.01 Long term (current) use of anticoagulants; Z79.84 Long term (current) use of oral hypoglycemic drugs; Z79.899 Other long term (current) drug therapy
CPT/HCPCS: 71046; 80048; 85025; 93005; 99283; A4216

== ENCOUNTER → 2024-02-09 | Outpatient (CLI) | payer MEDICARE, OTHER, SELFPAY ==
--- NOTE | 2024-02-09 13:50 | CT_ITS ---
CT LEFT LOWER EXTREMITY WITH 3-D IMAGING CLINICAL INDICATION: Displaced intertrochanteric fracture of left femur. TECHNIQUE: Axial CT images of the left lower extremity was performed without IV contrast material. Coronal and sagittal reformats were provided. The protocol utilizes one or more of the following dose reduction techniques: automated exposure control, adjustment of mA and/or kV according to patient size, and/or use of iterative reconstruction technique. RADIATION DOSAGE (If Supplied By Facility): CTDIvol = ( 17.06 ) mGy, DLP = ( 556.41 ) mGycm COMPARISON: Pelvis and left hip radiographs dated 08/10/2023. FINDINGS: Bones: There is mild degenerative arthrosis of the left hip joint with mild marginal osteophyte formation of the left femoral head. There is an intramedullary nail in the left femur with hip screw in place. There is an old/remote transversely oriented fracture of the left proximal femur at the level of the lesser trochanter. Osseous structures are otherwise intact without evidence of new fracture or dislocation. No lytic or blastic osseous masses. Soft Tissues: The deep soft tissue structures are unremarkable. The superficial soft tissues are unremarkable without evidence of edema, hematoma, or foreign body. 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 Old/remote transversely oriented fracture of the left proximal femur at the level of the lesser trochanter. No new fracture. Electronically Signed: Porter Del Angel MD at 15:40 EDT ,
== END | disposition home or self-care (01) ==
LOC: CT 13:18
PROVIDERS: PCP Family Medicine; Referring Provider Student in an Organized Health Care Education/Training Program; Visit Provider Student in an Organized Health Care Education/Training Program
DX: S72.142D Displaced intertrochanteric fracture of left femur, subsequent encounter for closed fracture with routine healing (principal); X58.XXXD Exposure to other specified factors, subsequent encounter
CPT/HCPCS: 73700

== ENCOUNTER 2024-03-27 13:38 | Observation (INO) | payer MEDICARE, OTHER, SELFPAY ==
[2024-03-13 16:26] LABS: Hematocrit 43.1 % (37-47); Hemoglobin 14.6 g/dL (12.0-15.0); Mean Corp Hgb Conc 33.9 g/dL (32-36); Mean Corpuscular Hgb 31.4 pg (27.0-32.0); Mean Corpuscular Volume 92.7 fL (81-99); Mean Platelet Vol. 9.2 fl (6.2-12.0); Platelet Count 283 K/mm3 (150-450); RBC Distribution Width CV 12.4 % (11.6-14.6); RBC Distribution Width SD 42.5 fl (35.1-43.9); Red Blood Count 4.65 M/mm3 (4.2-5.4); White Blood Count 11.2 K/mm3 (4.4-11.0)
[2024-03-13 17:01] LABS: Anion Gap 6 (5-15); BUN 24 mg/dL (7-18); BUN/Creat Ratio 28.8 RATIO (10-20); Calcium,Total 9.2 mg/dL (8.5-10.1); Chloride 107 mmol/L (98-107); Creatinine, Serum 0.83 mg/dL (0.55-1.02); EST Glomerular Filtration Rate 71 mL/min (>60); Est Glom Filt Rate - Afr Amer 85 mL/min (>60); Glucose 161 mg/dL (74-106); Potassium 4.2 mmol/L (3.5-5.1); Sodium Level 139 mmol/L (136-145)
--- NOTE | 2024-03-14 20:32 | HP.PCM_ITS ---
History and Physical History and Physical Patient Name: Leena Barreto : 1945From:? SARAHI DAVIS PA-C DATE OF PRE-OPERATIVE EXAM: 03/13/2024 DATE OF SURGERY:? 03/27/2024 SCHEDULED PROCEDURE:? Left femur hardware removal HISTORY OF PRESENT ILLNESS: Preoperative history and physical exam was performed on March 13, 2024.? This is a 78-year-old female who had a intertrochanteric left hip fracture when she was then [place].? She underwent a left hip cephalo-medullary nail on July 27, 2023.? She continues to have pain with direct pressure on the left side.? Her pain is primarily associated on the lateral aspect.? She has tried oral medications including meloxicam, Tylenol with no relief.? She has attempted home exercises without relief.? X-rays reveal the lag screw is prominent.? Patient had a CT scan in January 2024 which revealed mild degenerative arthrosis of the left hip with no new fracture.? After failing conservative measures and discussion with Dr. Melvin Calixto, the patient does wish to proceed with a left femur hardware removal.? Patient has had surgical clearance from the primary care provider Dr. Pete.? Labs and EKG have will be obtained.? Patient has medical history pertinent for type 2 diabetes mellitus, hypertension, hypercholesterolemia, sleep apnea without use of CPAP.? She denies any recent fevers, chills, recent infections.? Patient denies past history of DVT or pulmonary embolism.? She does use estradiol patches.? There is been no recent fevers, chills, recent infections.? No chest pain or shortness of breath. REVIEW OF SYSTEMS: Review Of Systems: Constitutional: Denies change in appetite, fever and weight change. Cardiovasular: Denies chest pain, heart murmur and irregular heartbeat. Respiratory: Denies cough, pneumonia, shortness of breath, tuberculosis and wheezing. Gastrointestinal: Denies constipation, diarrhea, heartburn, nausea, rectal itching, bloody stools and vomiting. Musculoskeletal: Reports gait disturbance and pain, but denies leg swelling, trouble walking and weakness. Skin: Denies Raynaud's, history of shingles and tattoo. Neurological: Reports tremor but denies ambulatory dysfunction, dizziness and numbness/tingling. Psychiatric: Denies anxiety, insomnia and stress. Hematologic/Lymphatic: Denies anemia, bleeding/bruising tendency and past transfusion. Reviewed and updated. PAST MEDICAL HISTORY: Advance Care Plan: Other Directive, LIVING WILL Effective Date: 08/13/2023 Other Directive, POA Effective Date: 08/13/2023 Past Medical History: Medical Problems: Arthritis, Diabetes, High Blood Pressure, Hypercholesterolemia Sleep Apnea - DOES NOT SLEEP WITH CPAP AT NIGHT Accidents: Fracture - femur 2023 Surgical Hx: Cataracts Tonsillectomy - to help with sleep apnea Tubal Ligation Cephalomedullary nail fixation peritrochanteric left femur fracture - (07/27/2023) [place] Septoplasty - to help with sleep apnea Anesthesia Complications: None Assistive Devices: Glasses Reviewed and updated. SOCIAL HISTORY: Social History: Marital: .Occupation: Retired.Work Status: Retired.Hand Dominance: Right- handed. Personal Habits:? Cigarette Use: Never Smoked Cigarettes.Smokeless Tobacco: Never Used Smokeless Tobacco.E-Cigarette Use: Never used.Alcohol: Denies use.Drug Use: Denies Use.Enjoy Exercising: Daily. Reviewed, no changes. VITALS: Ht: 64 Wt: 172lb Wt k.019 BMI: 29.5 BP: 126/74 Pulse: 71 Resp: 16 T: 97.7 T: 36.5C Pain Level: 3 O2SatR: 100 ALLERGIES: Sulfa Lisinopril MEDICATIONS: Amlodipine Besylate 5 mg once daily, Metoprolol Succinate ER 50 mg once daily, Losartan Potassium 50 mg once daily, Gabapentin 100 mg take 1 capsule once daily, Atorvastatin Calcium 10 mg once daily, Progesterone 100 mg once daily, Ibuprofen 200 mg 2 tablets by mouth for pain as needed, Estradiol 0.025 mg/24hr change once weekly, Meloxicam 15 mg 1 by mouth every day, Aspirin 81 81 mg 1 po qdaily PRE-OP EXAM: General appearance:NORMAL? Other: Eyes: Conjunctivae and lids: NORMAL? Pupils: ERR Ears, Nose, Mouth, and Throat: NORMAL? Other: Inspection of lips, teeth and gums: NORMAL?? Other: Neck: Examination of neck: no masses noted. Respiratory: Assessment of respiratory effort: NORMAL?? Other: ? Auscultation of lungs: clear to auscultation no wheezes, rhonchi or rales. Cardiovascular:? Auscultation of heart: regular rate and rhythm, no murmurs, gallops or rubs. PHYSICAL EXAMINATION: On exam patient does walk with an antalgic gait.? Previous incisions left hip are well-healed.? No erythema or signs of infection.? She has tenderness to palpation over the lateral greater trochanteric region.? She tolerated range of motion with the left hip very well.? All of her pain is associated laterally.? Sensation intact to light touch to bilateral lower extremities. IMAGING STUDIES: Previous x-rays of the left hip reveal previous cephalo-medullary nail with interval healing with no further collapse.? The lag screw appears prominent by approximately 16 mm.? There is varus alignment of the fracture. CT scan reveals mild degenerative changes of the left hip with no new fracture. IMPRESSION: 1.? Painful hardware from previous left hip cephalo-medullary nail 2.? Hypertension 3.? Type 2 diabetes mellitus: A1c 6.0 4.? Hypercholesterolemia 5.? Sleep apnea 6.? Overweight with BMI 29.5 PLAN: Dr. Arthur Calixto did discuss and review with the patient all treatment options including surgical versus nonsurgical options.? Patient does wish to proceed with the above-stated procedure.? Potential risks, benefits, and complications of the procedure were discussed in detail including but not limited to , infection, nerve and blood vessel damage, persistent pain, numbness, tingling, paresthesias, blood clot, pulmonary embolism, and requirement for possible further surgery.? The patient expressed full understanding and has no further questions for the doctor.? Patient does agree to proceed with the above-stated procedure and has signed the surgery consent form. POST-OP MEDICATION PLAN: Pain Medications: Postoperative pain regimen will be initiated by Dr. Melvin Calixto in the hospital.? I did advise her to bring her walker to the hospital. DVT Prophylaxis:? DVT prophylaxis plan will be initiated by Dr. Arthur Calixto in the hospital. This dictation was created using voice recognition software. Phonetic and/or grammatical errors may exist. ___? I have re-examined the patient.? There are no clinical changes since date of exam. ___? See progress notes for changes. ___? Dictated on admission Date: ? Time: Signature:
[2024-03-27] VITALS (17 sets, daily range): BP systolic 115–153; BP diastolic 57–82; PULSE 73–100; RESP 16–18; TEMP 36.3–36.9; O2SAT 94–100; BMI 30.4; BMI 30.5
--- NOTE | 2024-03-27 11:00 | RAD_ITS ---
STUDY: X-RAY - PELVIS AND LEFT HIP REASON FOR EXAM: Female, 78 years old. LT FEMUR HARDWARE EXCHANGE TECHNIQUE: 2 views of the pelvis and hip. COMPARISON: 08/10/2023 FINDINGS: 23 seconds of fluoroscopy of the left hip was utilized operating during revision of open reduction internal fixation of fracture of the intertrochanteric femur with a femoral neck compression screw and intramedullary elizabeth and 2 images are submitted for interpretation. . RAD/Hip Min 2 Views (Portable) IMPRESSION: Fluoroscopy during revision of open reduction internal fixation of fracture of the intertrochanteric femur. Electronically Signed: Von Valera MD at 8:59 EST ,
[2024-03-27] MEDS: Lactated Ringers 1,000 ML 15 ML IV (11:10)
--- NOTE | 2024-03-27 11:18 | PRE.ANES_ITS ---
ASA Classification* ASA Classification ASA Classification: 2 Assessment & Plan Anesthesia* Anesthesia Assessment Anesthesia Assessment: Discussed sedation and/or anesthesia options, risks, benefits, and alternatives with patient/parents/legal guardian/POA. Questions invited. The patient/parents/legal guardian/POA seems to understand and agrees to proceed with anesthesia plan. Reviewed the physical assessment, medical history, allergy history and patient home medications list prior to surgery/procedure/anesthetic and documented any changes. Performed airway and anesthesia risk assessments. Anesthesia Type Anesthesia Type: General History Source History Obtained from:: Patient and Chart Anesthesia Focused Assessment* Temperature: 97.4 F Pulse Rate: 73 Blood Pressure: 153/75 Respiratory Rate: 16 Pulse Ox: 100 Oxygen Delivery Method: Room Air Airway Assessment Mouth opens: >3 cm Mallampati Score: III Teeth Condition: Intact Neck Range of motion (ROM): Limited ROM (Somewhat decreased extension) Focused Labs Anesthesia Preop lab: CBC WBC 11.2 K/mm3 (4.4-11.0) H 03/13/24 15:25 RBC 4.65 M/mm3 (4.2-5.4) 03/13/24 15:25 Hgb 14.6 g/dL (12.0-15.0) 03/13/24 15:25 Hct 43.1 % (37-47) 03/13/24 15:25 Plt Count 283 K/mm3 (150-450) 03/13/24 15:25 CHEMISTRY Potassium 4.2 mmol/L (3.5-5.1) 03/13/24 15:25 Sodium 139 mmol/L (136-145) 03/13/24 15:25 BUN 24 mg/dL (7-18) H 03/13/24 15:25 Creatinine 0.83 mg/dL (0.55-1.02) 03/13/24 15:25 Glucose 161 mg/dL (74-106) H 03/13/24 15:25 POC Glucose 116 mg/dL (74-106) H 03/27/24 10:59 COAG Pre-Assessment Diagnosis/Proposed Procedure Planned Operative Procedure(s): LEFT FEMUR HARDWARE EXCHANGE Anesthesia History Anesthesia History - energy control officer: Anesthesia History - energy control officer Hx Hospitalization No 03/20/24 12:42 Any Problems With Anesthesia No 03/20/24 12:42 Cholinesterase deficiency No 03/20/24 12:42 You/Your Family Experience No 03/20/24 12:42 fever (hyperthermia) with Relationship Recent Exposure to Contagious No 03/27/24 11:06 Disease Does patient have nerve No 03/20/24 12:42 stimulator Patient instructed to have device shut off --Does patient have Pacemaker No 03/27/24 11:06 or ICD? When Was Last Pacemaker Check QUESTION #4 FULL TEXT: You/Your Family Experience fever (hyperthermia) with Anesthesia Last Oral Intake Last Oral intake: Last Oral Intake NPO since 00:00 03/27/24 11:06 Meds taken in AM with sips of Yes 03/27/24 11:06 water? Meds patient instructed to take am of surgery PONV PONV - energy control officer: PONV - energy control officer Female Yes 03/20/24 12:42 HX of Motion Sickness No 03/20/24 12:42 HX of N/V After Surgery No 03/20/24 12:42 Non-Smoker Yes 03/20/24 12:42 Duration of Surgery greater Yes 03/20/24 12:42 than 60 minutes Number of Risk Factors 3 03/20/24 12:42 PONV Score Moderate Risk 03/20/24 12:42 Height & Weight Height & Weight: Anesthesia: Height & Weight Height 5 ft 3 in 03/27/24 11:06 Weight: 78.018 kg 03/27/24 11:06 Body Mass Index (BMI) 30.4 03/27/24 11:06 Respiratory Assessment Respiratory Assessment - energy control officer: Respiratory Tract Infection Hx - energy control officer Hx Respiratory Tract Infection No 03/20/24 12:42 STOP Sleep Apnea STOP Sleep Apnea - energy control officer: STOP Sleep Apnea - energy control officer Hx Hypertension Yes: CONTROLLED WITH MED 03/20/24 12:42 Hx Sleep Apnea No 03/20/24 12:42 CPAP No 03/20/24 12:42 BIPAP No 03/20/24 12:42 Do you snore loudly (louder No 03/20/24 12:42 than talking or can be heard Do you often feel tired/ No 03/20/24 12:42 fatigued/ sleepy during daytime? Has anyone observed you stop No 03/20/24 12:42 breathing during sleep? STOP Results Negative 03/20/24 12:42 QUESTION #5 FULL TEXT : Do you snore loudly (louder than talking or can be heard through closed doors)? 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 Specify any problems Hx of Preganancy in last 3 No 03/20/24 12:42 Months Nurse Filling Out Transfusion DSCHRIBER 03/20/24 12:42 & Questions: Date: 03/20/24 03/20/24 12:42 Time: 12:44 03/20/24 12:42 Patient unable to answer at this time (ie. confused, unrespo /Reproduction History /Reproductive History - energy control officer: /Reproductive Hx- energy control officer Hx Now No 03/20/24 12:42 Gestational Age (in weeks): EDC: Hx Hx Para Hx Section SAB No 03/20/24 12:42 Active Medications Active Medications: Current Medications Generic Name Dose Route Start Last Admin Trade Name Freq PRN Reason Stop Dose Admin Cefazolin Sodium 2 gm/ N/A 20 mls @ 400 mls/hr 03/27/24 14:00 IV 03/27/24 14:02 PREOP ONE Lactated Ringer's 1,000 mls @ 15 mls/hr 03/27/24 10:45 03/27/24 11:10 IV 04/02/24 00:04 15 mls/hr .Q48H RUBEN Administration Protocol PFSH Medical History Wears glasses Post-menopausal Anxiety Ambulates with cane Arthritis High cholesterol Non-smoker Shortness of breath on exertion Leg cramps History of pain when walking History of stress test Hx of fracture of femur Menopausal syndrome Diabetic polyneuropathy Hyperlipidemia Hypertension Diabetes mellitus Urinary retention Closed left hip fracture Fall Debility Home Medications ?Medication ?Instructions ?Recorded ?Last Taken ?Type amlodipine 5 mg tablet 5 mg PO DAILY blood pressure 07/31/14 03/27/24 History losartan 50 mg tablet 50 mg PO DAILY blood pressure 07/31/14 03/27/24 History metoprolol succinate 50 mg 50 mg PO DAILY blood pressure 07/31/14 03/27/24 History tablet,extended release 24 hr atorvastatin 10 mg tablet 10 mg PO QHS cholesterol 07/30/23 03/26/24 History estradiol 0.025 mg/24 hr weekly 1 patch transdermal WE estrogen 07/30/23 03/26/24 History transdermal patch gabapentin 100 mg capsule 200 mg PO QHS nerve pain 07/30/23 03/26/24 History metformin 500 mg tablet,extended 1,000 mg PO DAILY diabetes 07/30/23 03/26/24 History release 24 hr progesterone micronized 100 mg 100 mg PO QHS progesterone 07/30/23 03/26/24 History capsule topiramate 100 mg tablet 100 mg PO DAILY nerve pain 07/30/23 03/27/24 History meloxicam 15 mg tablet 15 mg PO DAILY 03/20/24 03/22/24 History metformin 500 mg tablet 500 mg PO QHS 03/20/24 03/26/24 History Allergy/AdvReac Type Severity Reaction Status Date / Time lisinopril AdvReac Upset Verified 03/27/24 11:05 Stomach Sulfa (Sulfonamide AdvReac Other Verified 03/27/24 11:05 Antibiotics) Family History Father Lung cancer Mother Hypertension Aortic aneurysm Sister Parkinson disease Surgical History Hx of oral surgery History of tonsillectomy History of nasal septoplasty History of tubal ligation Social History household members: spouse Smoking Status: Never smoker alcohol intake: never substance use type: does not use Review of Systems (Anesthesia) ROS Narrative System reviewed and no additional complaints, except as documented.
[2024-03-27 11:30] LABS: Bedside Glucose 116 mg/dL (74-106)
[2024-03-27] MEDS: Cefazolin 2 GM in Syringe IV (11:49)
[2024-03-27] MEDS: Bupiv/Epi 0.25% 30 ML Vial (13:10)
--- NOTE | 2024-03-27 14:53 | PCM.POST.ANE ---
Anesthesia: Postop Eval I Current Vital Signs Temperature: 98.1 F Pulse Rate: 92 Blood Pressure: 125/67 Respiratory Rate: 18 Pulse Ox: 95 Oxygen Delivery Method: Room Air Assessment Airway patent: Yes Spontaneous unlabored respirations: Yes Mental status: Awake and Calm nausea: No Vomiting: No Anesthesia Complication: No Fluid Hydration Crystalloid volume administer (ml): 1,000 Total IV fluid infused: 1,000 Progress Note Anesthesia document: Postop Eval 1 completed: Yes
--- NOTE | 2024-03-27 15:32 | POSTOPAN2_ITS ---
Anesthesia Postop Eval I Sum Postop Eval Completion status Anesthesia document: Postop Eval 1 completed: Yes Anesthesia Postop Eval I Summary Anesthesia Postop Eval I Summary: Anesthesia Postop Eval I: Assessment Summary Airway patent Yes 03/27/24 14:53 TITLE [email or web address] Spontaneous unlabored Yes 03/27/24 14:53 TITLE [email or web address] respirations Mental status Awake,Calm 03/27/24 14:53 TITLE [email or web address] nausea No 03/27/24 14:53 TITLE [email or web address] Vomiting No 03/27/24 14:53 TITLE [email or web address] Anesthesia Postop Eval I: Fluid Summary Crystalloid volume administer 1,000 03/27/24 14:53 TITLE [email or web address] (ml) Colloids volume administered ( ml) Blood Product volume administered (ml) Total IV fluid infused 1,000 03/27/24 14:53 TITLE [email or web address] Anesthesia Postop Eval I: Summary Notes Anesthesia Complication No 03/27/24 14:53 TITLE [email or web address] Anesthesia Complication Comment: Post-operative progress note Anesthesia: Postop Eval II Evaluation Mental status: Awake and Calm Pain Level: 1 nausea: No Vomiting: No Complications Anesthesia Complication: No
--- NOTE | 2024-03-27 15:32 | PCM.POSTANE2 ---
Anesthesia Postop Eval I Sum Postop Eval Completion status Anesthesia document: Postop Eval 1 completed: Yes Anesthesia Postop Eval I Summary Anesthesia Postop Eval I Summary: Anesthesia Postop Eval I: Assessment Summary Airway patent Yes 03/27/24 14:53 SCREEN PRINTING EQUIPMENT SETTER.[email or web address] Spontaneous unlabored Yes 03/27/24 14:53 SCREEN PRINTING EQUIPMENT SETTER.JBLOU respirations Mental status Awake,Calm 03/27/24 14:53 SCREEN PRINTING EQUIPMENT SETTER.JBLOU nausea No 03/27/24 14:53 SCREEN PRINTING EQUIPMENT SETTER.JBLOU Vomiting No 03/27/24 14:53 SCREEN PRINTING EQUIPMENT SETTER.JBLOU Anesthesia Postop Eval I: Fluid Summary Crystalloid volume administer 1,000 03/27/24 14:53 SCREEN PRINTING EQUIPMENT SETTER.JBLOU (ml) Colloids volume administered ( ml) Blood Product volume administered (ml) Total IV fluid infused 1,000 03/27/24 14:53 SCREEN PRINTING EQUIPMENT SETTER.JBLOU Anesthesia Postop Eval I: Summary Notes Anesthesia Complication No 03/27/24 14:53 SCREEN PRINTING EQUIPMENT SETTER.JBLOU Anesthesia Complication Comment: Post-operative progress note Anesthesia: Postop Eval II Evaluation Mental status: Awake and Calm Pain Level: 1 nausea: No Vomiting: No Complications Anesthesia Complication: No
--- NOTE | 2024-03-27 15:55 | PCM.OPRPT ---
Operative Report (Standard) Operative Information Surgery/Procedure Performed: Left femur hardware exchange Surgeon: Arthur Calixto Date of Procedure: 03/27/24 Procedure Start Time: 12:13 Procedure Stop Time: 13:22 Pre-Operative Diagnosis: Symptomatic hardware left femur Post-Operative Diagnosis: Symptomatic hardware left femur Select all DRAINS/GRAFTS/IMPLANTS that apply: None ([facility] report below) Type of Anesthesia: General Estimated Blood Loss: 100 cc Specimen collected: No Description of surgery: Preoperative diagnosis: Left femur symptomatic hardware Postoperative diagnosis: Left femur symptomatic hardware Monorail Charger Operator: Melissa Lagos PA-C Anesthesia: General LMA Anesthesiologist: Dr. Hoover Implants: Synthes 75 mm TFN lag screw Indications: 78-year-old female who sustained a left intertrochanteric femur fracture in [place] approximately 9 months ago. She recovered well and healed the fracture. There is considerable collapse of the fracture site causing the helical blade to slide with significant protrusion from the lateral femoral cortex of the greater trochanter. She had persistent pain laterally and could feel the screw. CT demonstrated a well-healed fracture. I recommended an exchange of hardware of the left femur to a shorter leg screw. She was to proceed with surgery. Risks, benefits, alternatives to procedure were reviewed with the patient at length and she agreed to proceed. Risks included but were not limited to bleeding, infection, loss of life or limb, need for additional surgery, persistent pain, persistent leg length discrepancy, neurovascular injury, nonhealing bone or wounds, risk of anesthesia, DVT or PE. Informed sent obtained in the outpatient setting. Description of procedure: Patient identified in the preoperative holding area by name, medical record number, and date of . The operative extremity was marked. All questions were answered to the patient satisfaction. At time of her procedure, patient brought to the op suite positioned supine on a radiolucent table. General anesthesia was induced and LMA placed. Patient was then positioned in a sloppy lateral position with a beanbag. All bony prominences were well-padded. We prepped draped the left lower extremity in a normal, sterile orthopedic fashion. 2 g Ancef was administered prior to incision by anesthesia staff. We performed a timeout confirming the side, site, and operation to be performed. No concerns were voiced and we elected to proceed with surgery. I first identified the most proximal incisional scar. This was opened and extended approximately 4 cm with a 10 blade scalpel. Hemostasis was achieved with Bovie cautery. IT band was opened in line with the incision. The tip of the TFN was identified with fibrous tissue and bone overgrown. This was debrided with combination of curette and rongeur. I was then able to thread the insertion handle onto the TFN. I then identified the leg screw/helical blade incision and open this and extended approximately 3 cm. IT band was opened in line with the incision. The helical blade was easily identified. The extraction device was then applied and was able to easily remove the helical blade. I then measured for a more appropriately sized screw. 75 mm appeared to be appropriate. I drilled for the screw and placed it by hand with slight countersinking of the beveled surface. Final fluoroscopic images were obtained and saved. Wounds were mars irrigated with normal saline solution. IT band was closed watertight with interrupted [id number] 0 Vicryl suture. Dermis was reapproximated buried 2-0 Vicryl suture and hung. Bulky sterile compression dressing was applied. 20 cc quarter percent bupivacaine with epinephrine was injected around the incisions. Patient was repositioned supine and extubated in the operative suite. She tolerated the procedure well without apparent complication. She was transferred to her gurney and subsequent to PACU in stable condition. Need for skilled furniture removalist's assistant: Melissa Lagos PA-C was critical to the outcome of the case. During the course of the procedure the physician furniture removalist's assistant played a vital role. Her intimate knowledge of my steps in the procedure aided in safe and expedient completion of the procedure. The PA played a vital role in positioning particularly in obtaining the appropriate positioning. The PA was also vital in the retraction of soft tissues during the exposure and protecting vital structures. The PA was also vital in assisting with hardware placement. She also played a vital role in closure and dressing application with my direct supervision. Postoperative plan: Patient will be placed in observation overnight for medical monitoring and early convalescence. She will be weightbearing as tolerated to the left lower extremity with a walker. Lovenox to start tomorrow morning. Likely transition to aspirin upon discharge if patient mobilizes well. SCDs and COLT vermae. 24 hours Ancef. Oxycodone ordered for pain control as well as scheduled Tylenol. Ice to the left hip. PT/OT ordered. Anticipate discharge home tomorrow. Surgical Findings: Prominent helical blade left TFN Cook Helper Juice business executive: Yes Monorail Charger Operator: Melissa Lagos Tasks completed by housekeeping assistant: Opening & closing, Dissecting tissue, Implanting device and Retracting Additional furniture removalist's assistant?: No Complications Complications: No Admit VTE Documentation VTE Present on Admission: No VTE Mechan Device Prophylaxis: SCD's VTE Pharm Prophylaxis ordered?: Yes
[2024-03-27] MEDS: Acetaminophen 500 MG Tablet 1000 MG PO ×2 (16:34→21:35)
[2024-03-27] MEDS: Meloxicam 15 MG Tablet PO (16:34)
[2024-03-27] MEDS: oxyCODONE 5 MG Tablet PO (20:26)
[2024-03-27] MEDS: Cefazolin 1 GM/50 ML BAG IV (20:26)
[2024-03-27] MEDS: Gabapentin 100 MG Capsule 200 MG PO (21:36)
[2024-03-27] MEDS: Atorvastatin Calcium 10 MG Tablet PO (21:36)
[2024-03-27] MEDS: metFORMIN (XR) 500 MG Tablet PO (21:36)
[2024-03-28] MEDS: oxyCODONE 5 MG Tablet PO ×2 (00:21→08:06)
[2024-03-28 03:30] VITALS: BP 147/84; PULSE 87; RESP 16; TEMP 36.7; O2SAT 100; BMI 30.5
[2024-03-28] MEDS: Cefazolin 1 GM/50 ML BAG IV (04:12)
[2024-03-28] MEDS: Acetaminophen 500 MG Tablet 1000 MG PO (05:49)
[2024-03-28 07:52] VITALS: BP 122/67; PULSE 75; RESP 16; TEMP 36.8; O2SAT 97
[2024-03-28] MEDS: metFORMIN (XR) 500 MG Tablet 1000 MG PO (08:05)
--- NOTE | 2024-03-28 09:35 | CASEMGMT ---
GAMAL GAITAN Assessment: Face to Face with pt for initial transition planning/care coordination assessment. RN ARNIE introduced self and role at [facility], pt voices understanding and consents to assessment. Pt is A&O x4 and answers all questions appropriately at this time. Pt sitting up in chair in no distress. Pt sitting in chair at bedside, pt agreeable to answering questions with present. Care providers, pharmacy, and demographics verified/updated. Strata:2 Admitting Dx: [employer] PCP: Juan R Specialists: Durga Nelson Pharmacy: [facility] Insurance: MCR, [employer] Prescription Benefit: yes LNOK: , Fausto Living Arrangements: Pt lives with in a 3 story home with 4+2 steps to enter. ADLs: Pt reports I with ADLs and IADLs. Transportation: Pt drives self and denies concerns with transportation. DME: Walker, cane, wheelchair. HHC/SNF: Denies Hx of. Pt states no concerns with going home at time of dc. Pt reports PT scheduled for 03/30/24 at [facility]. Pt states no further concerns/needs. CM to follow. Advised pt to ask CM if any further question/concerns/needs arise, voices understanding. Pt Goal: Home Plan: Home with family support and OP PT. Adelfo YEUNG CM
[2024-03-28] MEDS: Enoxaparin 40 MG/0.4 ML Syringe SC (10:31)
[2024-03-28 10:32] VITALS: PULSE 75
[2024-03-28] MEDS: Metoprolol(XL)Succ 50 MG Tablet PO (10:32)
[2024-03-28] MEDS: Topiramate 100 MG Tablet PO (10:33)
[2024-03-28] MEDS: amLODIPine 5 MG Tablet PO (10:33)
[2024-03-28] MEDS: Losartan Potassium 50 MG Tablet PO (10:34)
--- NOTE | 2024-03-28 11:54 | PCM.PN.ORT ---
Subjective Subjective Patient sitting at bedside eating lunch, in the room with her. Patient reports her pain has been very well-managed. She states that the worst pain she has had has been a 6. Presently she rates her pain as a 2. Patient denies any chest pain, shortness of breath, calf pain, nausea vomiting. Patient reports she is ready to go home today. Patient reports she has been up walking with a walker with minimal discomfort Objective Data Objective Data Vital Signs: Vital Signs Temp Pulse Resp BP Pulse Ox O2 Del Method 98.2 F 75 16 122/67 H 97 Room Air 03/28/24 07:52 03/28/24 10:32 03/28/24 07:52 03/28/24 07:52 03/28/24 07:52 03/28/24 07:52 Oxygen Delivery Method Room Air Weight: 78 kg Body Mass Index (BMI) 30.4 Intake & Output: Intake and Output for Last 24 Hours 03/26/24 03/27/24 03/28/24 22:59 23:59 23:59 Intake Total 70 / 70 250 / 250 Output Total 400 / 400 Balance 70 / 70 -150 / -150 Lab / Micro Data 03/13/24 15:25 03/13/24 15:25 Radiography Diagnostic Testing: Radiology Impression Hip X-Ray 03/27/24 11:00 IMPRESSION: Fluoroscopy during revision of open reduction internal fixation of fracture of the intertrochanteric femur. Electronically Signed: Von Valera MD at 8:59 EST , Physical Exam Narrative Exam, I found patient sitting at bedside eating lunch. No respiratory distress speaking full sentences. Full range of motion of the upper extremities. Exam of the left hip I found the dressing to be slightly blood soaked but no active bleeding. The surrounding area was not erythematous and nontender. Patient had good motion of the hip without pain. Good flexion extension of bilateral knees. No calf pain. Neurovascular is otherwise intact. Const alert and oriented x3 General Appearance: cooperative HEENT normocephalic Eyes PERRL Lymph Lymphatic: no lymphadenopathy noted Resp normal respiratory effort Effort and Inspection: able to speak in complete sentences Extremity normal capillary refill Skin no rashes or lesions noted Neuro CN's II-XII intact bilaterally Psych mental status grossly normal and affect normal Assessment & Plan Assessment/Plan (1) S/P hardware removal: PLAN: 1. Continue all pain medications as prescribed 2. Aspirin 81 mg 1 p.o. every 12 hours x 30 days for postop DVT prophylaxis 3. Patient will continue her meloxicam 15 mg 1 p.o. daily. Patient advised to take this with food. 4. Continue ice to the incisional area for the next 2 weeks. 5. Weight-bear as tolerated ambulate with use of walker 6. Follow-up with Dr. Calixto 2 weeks, as scheduled 7. Begin physical therapy as scheduled 8. Discharge home today
--- NOTE | 2024-03-28 12:01 | DCINST_ITS ---
Discharge Instructions Diet Discharge Diet: No restrictions Activity Discharge Activity: May Not Drive, May Shower and Use Walker May shower in (days): 4 Weight Bearing Status: Weight bearing as tolerated Keep extremity elevated above heart level: Operative Extremity Dressing / Incision Call your doctor if your incision/area has: Continuous Slow Oozing, Sudden Increased Bleeding, Increased Pain/ Swelling, Increased Redness, Foul Smelling Discharge and Swelling at the incision site Call your doctor if you observe: Fever of 101 or Higher Change Dressing in: leave in place till F/U Remove Dressing in: leave in place till F/U Follow Up Care Please Follow Up With: Arthur Conner DO When: As scheduled Test Results: Test results from this visit will be discussed in further detail at your follow- up appointment, if applicable. Discharge Plan Admission Admit Date/Time: 03/27/24 13:38 Primary Reason for Your Visit: Removal of painful hardware from left hip Attending Provider: Arthur Calixto Primary Care Provider: Amanuel Pete Consulting Providers: Jamie Velasquez Discharge Orders/Prescriptions Prescriptions: New acetaminophen 500 mg Tablet 1,000 mg PO Q8 MDD 3000 mg Qty: 90 0RF oxycodone 5 mg Tablet 5 mg PO Q4H PRN PRN (Reason: Pain Score 6-10) 7 Days Qty: 30 0RF Continued losartan 50 MG tablet 50 mg PO DAILY metoprolol succinate 50 MG tablet 50 mg PO DAILY amlodipine 5 MG tablet 5 mg PO DAILY metformin 500 mg tablet 500 mg PO QHS meloxicam 15 mg tablet 15 mg PO DAILY atorvastatin 10 mg tablet 10 mg PO QHS estradiol 0.025 mg/24 hr patch weekly 1 patch transdermal WE Patient Comments: changes every Wednesday per patient gabapentin 100 mg capsule 200 mg PO QHS Rx Instructions: gabapentin 100mg oral capsule take 2 (two) capsules by mouth every day at bedtime metformin 500 mg tablet extended release 24 hr 1,000 mg PO DAILY Rx Instructions: metformin ER 500mg tablet take 1 tab by mouth three times daily progesterone micronized 100 mg capsule 100 mg PO QHS Rx Instructions: progesterone 100mg oral capsule take one capsule by mouth every day topiramate 100 mg tablet 100 mg PO DAILY Referrals / Follow Up: Amanuel Pete MD [Primary Care Provider] - Disposition Disposition (needs filled in before D/C Order can be placed): Home, Self Care
--- NOTE | 2024-03-28 13:53 | PHA.DC.MR.R ---
Pharmacy [place] Med Reconciliation Pharmacy Service has performed discharge medication reconciliation for this patient. Medication education papers prepared, patient discharged when counseling was attempted. The patient's discharge medication list was reviewed for discrepancies and discrepancies were resolved. Medications at Discharge Home Medications amlodipine 5 mg tablet 5 mg PO DAILY blood pressure 07/31/14 losartan 50 mg tablet 50 mg PO DAILY blood pressure 07/31/14 metoprolol succinate 50 mg tablet,extended release 24 hr 50 mg PO DAILY blood pressure 07/31/14 atorvastatin 10 mg tablet 10 mg PO QHS cholesterol 07/30/23 estradiol 0.025 mg/24 hr weekly transdermal patch 1 patch transdermal WE estrogen 07/30/23 gabapentin 100 mg capsule 200 mg PO QHS nerve pain 07/30/23 metformin 500 mg tablet,extended release 24 hr 1,000 mg PO DAILY diabetes 07/30/23 progesterone micronized 100 mg capsule 100 mg PO QHS progesterone 07/30/23 topiramate 100 mg tablet 100 mg PO DAILY nerve pain 07/30/23 meloxicam 15 mg tablet 15 mg PO DAILY 03/20/24 metformin 500 mg tablet 500 mg PO QHS 03/20/24 acetaminophen 500 mg tablet 1,000 mg (2 x 500 mg) PO Q8 Postop pain #90 tabs 03/28/24 aspirin 81 mg chewable tablet 81 mg PO BIDCM #60 tabs 03/28/24 oxycodone 5 mg tablet 5 mg PO Q4H PRN PRN Pain Score 6-10 7 days #30 tabs 03/28/24
== END 2024-03-28 13:02 | disposition home or self-care (01) ==
LOC: SDC 14:36 → MS3 14:36
PROVIDERS: Admitting Provider Student in an Organized Health Care Education/Training Program; PCP Family Medicine; Referring Provider Student in an Organized Health Care Education/Training Program; Visit Provider Student in an Organized Health Care Education/Training Program
PROC: (CPT 27245; principal; 2024-03-27 11:30)
DX: Z47.2 Encounter for removal of internal fixation device (principal); E11.9 Type 2 diabetes mellitus without complications; T84.84XA Pain due to internal orthopedic prosthetic devices, implants and grafts, initial encounter; I10 Essential (primary) hypertension; G47.30 Sleep apnea, unspecified; E78.00 Pure hypercholesterolemia, unspecified; Y79.2 Prosthetic and other implants, materials and accessory orthopedic devices associated with adverse incidents; Z79.899 Other long term (current) drug therapy; Z79.82 Long term (current) use of aspirin
CPT/HCPCS: 20680; 27599; 01210; 36415; 73502; 76000; 80048; 82962; 83036; 85027; 94668; 96365; 96366; 96372; 97162; 97166; 99221; C1713; J7120; G0378; J2405